=== PATIENT | male | born 1935 | race Caucasian/White ===

== ENCOUNTER 2016-05-29 17:17 | Inpatient (IN) | payer OTHER ==
[~2016-05-29] VITALS: Ht 177.8 cm; Wt 83.9 kg
[2016-05-29 17:26] VITALS: BP_SYST 147
[2016-05-29] MEDS ORDERED: NACL 0.9% 1,000 ML IV SCH (17:46)
[2016-05-29 18:56] LABS: ANION GAP 8 (5-15); CHLORIDE 94 mmol/L (98-107); CREATININE 1.15 mg/dL (0.55-1.30); GLUCOSE 184 mg/dL (70-99); POTASSIUM 3.2 mmol/L (3.5-5.1); SODIUM SERUM 131 mmol/L (136-145); UREA NITROGEN, BLOOD 13 mg/dL (8-21)
[2016-05-29 19:01] LABS: ALANINE AMINOTRANSFERASE 28 U/L (12-78); ALBUMIN 3.2 g/dL (3.4-4.8); ASPARTATE AMINOTRANSFERASE 23 U/L (10-37); TOTAL BILIRUBIN 1.1 mg/dL (0.0-1.0); TOTAL PROTEIN, SERUM 6.8 g/dL (6.4-8.3)
[2016-05-29] MEDS ORDERED: POTASSIUM CHLORIDE 20 MEQ TAB.PRT.SR PO ONE (19:15)
[2016-05-29 19:16] LABS: BASOPHILS % (AUTO) 0.4 % (0.0-2.0); RED CELL DISTRIBUTION WIDTH 12.1 % (9.0-15.0)
[2016-05-29 19:23] LABS: EOSINOPHILS # (AUTO) 0.3 K/uL (0.0-0.4); EOSINOPHILS % (AUTO) 3.8 % (0.0-4.0); HEMOGLOBIN 14.8 g/dL (14.0-18.0); LYMPHOCYTES # (AUTO) 1.5 K/uL (1.0-5.5); LYMPHOCYTES % (AUTO) 16.7 % (20.5-51.5); MEAN CORPUSCULAR HEMOGLOBIN 32 pg (27-31); MEAN CORPUSCULAR HGB CONC 34 % (32-36); MEAN CORPUSCULAR VOLUME 93 fL (79.0-98.0); MONOCYTES % (AUTO) 11.4 % (1.7-9.3); NEUTROPHILS # (AUTO) 5.9 K/uL (1.8-7.7); NEUTROPHILS % (AUTO) 67.7 % (40.0-70.0); RED BLOOD CELL COUNT(AUTO) 4.72 MIL/uL (4.2-6.2); WHITE BLOOD COUNT (AUTO) 8.7 K/uL (4.8-10.8)
[2016-05-29 19:24] LABS: PLATELET COUNT (AUTO) 198 K/uL (130-430)
[2016-05-29] MEDS ORDERED: ASPIRIN 81 MG TAB.CHEW PO ONE (19:30)
[2016-05-29 19:34] LABS: BILIRUBIN,URINE NEGATIVE (NEGATIVE); CLARITY/URINE HAZY (CLEAR); COLOR,URINE YELLOW (YELLOW); GLUCOSE,URINE NEGATIVE (NEGATIVE); KETONES,URINE TRACE (NEGATIVE); LEUKOCYTE ESTERASE ,URINE 3+ (NEGATIVE); NITRITE, URINE POSITIVE (NEGATIVE); PROTEIN URINE NEGATIVE (NEGATIVE)
[2016-05-29 19:45] LABS: BLOOD, URINE TRACE (NEGATIVE)
[2016-05-29 19:46] LABS: BACTERIA,URINE MODERATE /HPF (None Seen); MUCUS,URINE None Seen /LPF (None Seen); RBC,URINE NONE SEEN /HPF (0-3); WBC,URINE 50-80 /HPF (0-3)
[2016-05-29] MEDS ORDERED: cefTRIAXone 1 GM IVPB PREMIX 50 ML IV ONE (20:00)
[2016-05-29] MEDS ORDERED: MORPHINE 2 MG/ML INJ. SYRINGE IVP ONE (20:15)
[2016-05-29 20:25] LABS: INR 1.2 (0.80-1.20); PROTHROMBIN TIME 12.6 SECS (9.5-12.5)
[2016-05-29 20:30] VITALS: BP_SYST 129
[2016-05-29] MEDS ORDERED: amLODIPine BESYLATE 5 MG TABLET PO ONE (22:00)
[2016-05-29] MEDS ORDERED: ACETAMINOPHEN 325 MG TABLET PO PRN (22:00)
[2016-05-29] MEDS: traMADol HCL HCL 50 MG TABLET (ULTRAM) PO PRN (23:16)
[2016-05-30 01:20] VITALS: BP_SYST 129
[2016-05-30 03:46] VITALS: BP_SYST 126
[2016-05-30] MEDS: traMADol HCL HCL 50 MG TABLET (ULTRAM) PO PRN ×4 (05:14→21:17)
[2016-05-30 07:02] LABS: BASOPHILS % (AUTO) 0.4 % (0.0-2.0); EOSINOPHILS # (AUTO) 0.4 K/uL (0.0-0.4); EOSINOPHILS % (AUTO) 4.7 % (0.0-4.0); HEMATOCRIT 45.7 % (36-54); LYMPHOCYTES # (AUTO) 1.6 K/uL (1.0-5.5); LYMPHOCYTES % (AUTO) 19.8 % (20.5-51.5); MEAN CORPUSCULAR HEMOGLOBIN 31 pg (27-31); MEAN CORPUSCULAR HGB CONC 33 % (32-36); MEAN CORPUSCULAR VOLUME 94 fL (79.0-98.0); MONOCYTES # (AUTO) 0.8 K/uL (0.0-1.0); MONOCYTES % (AUTO) 10.6 % (1.7-9.3); NEUTROPHILS # (AUTO) 5.1 K/uL (1.8-7.7); NEUTROPHILS % (AUTO) 64.5 % (40.0-70.0); PLATELET COUNT (AUTO) 168 K/uL (130-430); RED BLOOD CELL COUNT(AUTO) 4.85 MIL/uL (4.2-6.2); RED CELL DISTRIBUTION WIDTH 12.5 % (9.0-15.0); WHITE BLOOD COUNT (AUTO) 7.9 K/uL (4.8-10.8)
[2016-05-30 07:11] LABS: ANION GAP 5 (5-15); CALCIUM 9.3 mg/dL (8.4-11.0); CHLORIDE 95 mmol/L (98-107); CREATININE 0.88 mg/dL (0.55-1.30); GLUCOSE 133 mg/dL (70-99); POTASSIUM 3.4 mmol/L (3.5-5.1); SODIUM SERUM 132 mmol/L (136-145); UREA NITROGEN, BLOOD 11 mg/dL (8-21)
[2016-05-30 08:04] VITALS: BP_SYST 119
[2016-05-30] MEDS: ASPIRIN 81 MG TAB.CHEW PO SCH (09:11)
[2016-05-30] MEDS: LOSARTAN POTASSIUM 50 MG TABLET (COZAAR) PO SCH (09:11)
[2016-05-30] MEDS: DABIGATRAN ETEXILATE MESYLATE 75 MG CAPSULE PO SCH ×2 (09:11→21:16)
[2016-05-30] MEDS: ATORVASTATIN 10 MG TABLET PO SCH (09:12)
[2016-05-30] MEDS ORDERED: PANTOPRAZOLE SODIUM 40 MG TAB PO ONE (10:15)
[2016-05-30] MEDS ORDERED: POTASSIUM CHLORIDE 20 MEQ TAB.PRT.SR PO ONE (11:00)
[2016-05-30 12:10] VITALS: BP_SYST 152
[2016-05-30 16:01] VITALS: BP_SYST 128
[2016-05-30 20:00] VITALS: BP_SYST 118
[2016-05-30] MEDS: cefTRIAXone 1 GM in D5W 50 ML IV SCH (21:00)
[2016-05-30] MEDS ORDERED: cefTRIAXone 1 GM IVPB PREMIX 50 ML IV ONE (21:50)
[2016-05-31] VITALS: BP_SYST 140
[2016-05-31 04:00] VITALS: BP_SYST 136
[2016-05-31 06:48] LABS: BASOPHILS % (AUTO) 0.5 % (0.0-2.0); EOSINOPHILS # (AUTO) 0.1 K/uL (0.0-0.4); EOSINOPHILS % (AUTO) 1.4 % (0.0-4.0); HEMATOCRIT 47.5 % (36-54); LYMPHOCYTES # (AUTO) 1.5 K/uL (1.0-5.5); LYMPHOCYTES % (AUTO) 16.2 % (20.5-51.5); MEAN CORPUSCULAR HEMOGLOBIN 30 pg (27-31); MEAN CORPUSCULAR HGB CONC 32 % (32-36); MEAN CORPUSCULAR VOLUME 96 fL (79.0-98.0); MONOCYTES # (AUTO) 0.9 K/uL (0.0-1.0); MONOCYTES % (AUTO) 10.1 % (1.7-9.3); NEUTROPHILS # (AUTO) 6.6 K/uL (1.8-7.7); NEUTROPHILS % (AUTO) 71.8 % (40.0-70.0); PLATELET COUNT (AUTO) 175 K/uL (130-430); RED BLOOD CELL COUNT(AUTO) 4.95 MIL/uL (4.2-6.2); RED CELL DISTRIBUTION WIDTH 12.1 % (9.0-15.0); WHITE BLOOD COUNT (AUTO) 9.1 K/uL (4.8-10.8)
[2016-05-31 07:17] LABS: ALANINE AMINOTRANSFERASE 30 U/L (12-78); ALBUMIN 3.4 g/dL (3.4-4.8); ANION GAP 7 (5-15); ASPARTATE AMINOTRANSFERASE 27 U/L (10-37); CALCIUM 9.5 mg/dL (8.4-11.0); CHLORIDE 92 mmol/L (98-107); CREATININE 0.84 mg/dL (0.55-1.30); GLUCOSE 118 mg/dL (70-99); POTASSIUM 3.6 mmol/L (3.5-5.1); SODIUM SERUM 130 mmol/L (136-145); TOTAL BILIRUBIN 1.6 mg/dL (0.0-1.0); TOTAL PROTEIN, SERUM 7.2 g/dL (6.4-8.3); UREA NITROGEN, BLOOD 11 mg/dL (8-21)
[2016-05-31 07:18] LABS: THYROID STIMULATING HORMONE 1.14 uIu/mL (0.34-4.82)
[2016-05-31 08:25] VITALS: BP_SYST 129
[2016-05-31] MEDS: DABIGATRAN ETEXILATE MESYLATE 75 MG CAPSULE PO SCH ×2 (09:22→21:33)
[2016-05-31] MEDS: ATORVASTATIN 10 MG TABLET PO SCH (09:22)
[2016-05-31] MEDS: PANTOPRAZOLE SODIUM 40 MG TAB PO SCH (09:22)
[2016-05-31] MEDS: ASPIRIN 81 MG TAB.CHEW PO SCH (09:22)
[2016-05-31] MEDS: LOSARTAN POTASSIUM 50 MG TABLET (COZAAR) PO SCH (09:22)
[2016-05-31] MEDS: traMADol HCL HCL 50 MG TABLET (ULTRAM) PO PRN ×2 (09:28→21:33)
[2016-05-31] MEDS ORDERED: MILK OF MAGNESIA 30 ML UDC PO ONE (09:45)
[2016-05-31 12:25] VITALS: BP_SYST 122
[2016-05-31 16:31] VITALS: BP_SYST 127
[2016-05-31 19:30] VITALS: BP_SYST 124
[2016-05-31] MEDS ORDERED: TEMAZEPAM 15 MG CAPSULE PO ONE (20:30)
[2016-05-31] MEDS: cefTRIAXone 1 GM in D5W 50 ML IV SCH (21:32)
[2016-05-31] MEDS: DOCUSATE SODIUM 100 MG CAPSULE PO SCH (21:33)
[2016-06-01] VITALS: BP_SYST 115
[2016-06-01 04:00] VITALS: BP_SYST 136
[2016-06-01 06:51] LABS: BASOPHILS # (AUTO) 0.1 K/uL (0.0-0.2); BASOPHILS % (AUTO) 0.6 % (0.0-2.0); EOSINOPHILS # (AUTO) 0.1 K/uL (0.0-0.4); EOSINOPHILS % (AUTO) 0.8 % (0.0-4.0); HEMATOCRIT 44.9 % (36-54); LYMPHOCYTES # (AUTO) 1.3 K/uL (1.0-5.5); LYMPHOCYTES % (AUTO) 14.3 % (20.5-51.5); MEAN CORPUSCULAR HEMOGLOBIN 31 pg (27-31); MEAN CORPUSCULAR HGB CONC 33 % (32-36); MEAN CORPUSCULAR VOLUME 94 fL (79.0-98.0); MONOCYTES % (AUTO) 10.8 % (1.7-9.3); NEUTROPHILS # (AUTO) 6.5 K/uL (1.8-7.7); NEUTROPHILS % (AUTO) 73.5 % (40.0-70.0); PLATELET COUNT (AUTO) 168 K/uL (130-430); RED BLOOD CELL COUNT(AUTO) 4.76 MIL/uL (4.2-6.2); RED CELL DISTRIBUTION WIDTH 12.1 % (9.0-15.0)
[2016-06-01 07:27] LABS: ANION GAP 7 (5-15); CALCIUM 9.3 mg/dL (8.4-11.0); CHLORIDE 92 mmol/L (98-107); CREATININE 0.79 mg/dL (0.55-1.30); GLUCOSE 123 mg/dL (70-99); POTASSIUM 3.4 mmol/L (3.5-5.1); SODIUM SERUM 130 mmol/L (136-145); UREA NITROGEN, BLOOD 10 mg/dL (8-21)
[2016-06-01] MEDS: ATORVASTATIN 10 MG TABLET PO SCH (09:35)
[2016-06-01] MEDS: DABIGATRAN ETEXILATE MESYLATE 75 MG CAPSULE PO SCH ×2 (09:35→20:48)
[2016-06-01] MEDS: PANTOPRAZOLE SODIUM 40 MG TAB PO SCH (09:35)
[2016-06-01] MEDS: LOSARTAN POTASSIUM 50 MG TABLET (COZAAR) PO SCH (09:36)
[2016-06-01] MEDS: DOCUSATE SODIUM 100 MG CAPSULE PO SCH ×2 (09:36→20:47)
[2016-06-01] MEDS: ASPIRIN 81 MG TAB.CHEW PO SCH (09:37)
[2016-06-01] MEDS ORDERED: POTASSIUM CHLORIDE 20 MEQ TAB.PRT.SR PO ONE (10:30)
[2016-06-01] MEDS ORDERED: GADOPENTETATE DIMEGLUMINE 15 ML VIAL IV ONE (10:51)
[2016-06-01 10:52] VITALS: BP_SYST 134
[2016-06-01] MEDS ORDERED: GADOPENTETATE DIMEGLUMINE 5 ML VIAL IV ONE (10:52)
[2016-06-01] MEDS: traMADol HCL HCL 50 MG TABLET (ULTRAM) PO PRN ×2 (10:55→17:05)
[2016-06-01 12:00] VITALS: BP_SYST 126
[2016-06-01] MEDS ORDERED: ALPRAZolam 0.25 MG TABLET PO ONE (12:15)
[2016-06-01 16:00] VITALS: BP_SYST 124
[2016-06-01 19:30] VITALS: BP_SYST 122
[2016-06-01] MEDS: cefTRIAXone 1 GM in D5W 50 ML IV SCH (20:48)
[2016-06-02 00:06] VITALS: BP_SYST 140
[2016-06-02 03:51] VITALS: BP_SYST 134
[2016-06-02 07:29] LABS: BASOPHILS # (AUTO) 0.1 K/uL (0.0-0.2); BASOPHILS % (AUTO) 1.1 % (0.0-2.0); EOSINOPHILS # (AUTO) 0.1 K/uL (0.0-0.4); EOSINOPHILS % (AUTO) 1.1 % (0.0-4.0); HEMOGLOBIN 15.6 g/dL (14.0-18.0); LYMPHOCYTES # (AUTO) 1.5 K/uL (1.0-5.5); LYMPHOCYTES % (AUTO) 14.6 % (20.5-51.5); MEAN CORPUSCULAR HEMOGLOBIN 31 pg (27-31); MEAN CORPUSCULAR HGB CONC 33 % (32-36); MEAN CORPUSCULAR VOLUME 94 fL (79.0-98.0); MONOCYTES # (AUTO) 1.2 K/uL (0.0-1.0); MONOCYTES % (AUTO) 12.1 % (1.7-9.3); NEUTROPHILS # (AUTO) 7.2 K/uL (1.8-7.7); NEUTROPHILS % (AUTO) 71.1 % (40.0-70.0); PLATELET COUNT (AUTO) 186 K/uL (130-430); RED BLOOD CELL COUNT(AUTO) 5.11 MIL/uL (4.2-6.2); RED CELL DISTRIBUTION WIDTH 12.1 % (9.0-15.0); WHITE BLOOD COUNT (AUTO) 10.1 K/uL (4.8-10.8)
[2016-06-02 07:30] LABS: CALCIUM 9.4 mg/dL (8.4-11.0); CREATINE KINASE, TOTAL 969 U/L (39-308); CREATININE 0.86 mg/dL (0.55-1.30); GLUCOSE 123 mg/dL (70-99); UREA NITROGEN, BLOOD 12 mg/dL (8-21)
[2016-06-02 08:05] LABS: CHLORIDE 94 mmol/L (98-107)
[2016-06-02 08:14] LABS: ANION GAP 4 (5-15); POTASSIUM 3.5 mmol/L (3.5-5.1); SODIUM SERUM 130 mmol/L (136-145)
[2016-06-02 08:25] VITALS: BP_SYST 143
[2016-06-02 08:49] LABS: CKMB RELATIVE INDEX 1.5 (0.0-2.9); CREATINE KINASE MB 14.3 ng/mL (0-3.6)
[2016-06-02] MEDS: PANTOPRAZOLE SODIUM 40 MG TAB PO SCH (08:49)
[2016-06-02] MEDS: ATORVASTATIN 10 MG TABLET PO SCH (08:49)
[2016-06-02] MEDS: DABIGATRAN ETEXILATE MESYLATE 75 MG CAPSULE PO SCH ×2 (08:49→21:24)
[2016-06-02] MEDS: traMADol HCL HCL 50 MG TABLET (ULTRAM) PO PRN (08:50)
[2016-06-02] MEDS: ASPIRIN 81 MG TAB.CHEW PO SCH (08:50)
[2016-06-02] MEDS: LOSARTAN POTASSIUM 50 MG TABLET (COZAAR) PO SCH (08:51)
[2016-06-02] MEDS: DOCUSATE SODIUM 100 MG CAPSULE PO SCH ×2 (08:51→21:23)
[2016-06-02] MEDS: DEXAMETHASONE 1 MG TABLET (DECADRON) PO SCH ×2 (09:00→13:17)
[2016-06-02] MEDS ORDERED: DEXAMETHASONE 1 MG TABLET (DECADRON) PO SCH (09:00)
[2016-06-02] MEDS ORDERED: DIATR MEGLU/DIATRIZ SOD 30 ML SOLUTION PO ONE (09:19)
[2016-06-02] MEDS ORDERED: ALPRAZolam 0.25 MG TABLET PO ONE (10:30)
[2016-06-02] MEDS ORDERED: GADOPENTETATE DIMEGLUMINE 15 ML VIAL IV ONE (11:29)
[2016-06-02 16:19] VITALS: BP_SYST 137
[2016-06-02 17:17] LABS: CREATININE 0.97 mg/dL (0.55-1.30)
[2016-06-02] MEDS: DECADRON 4 MG TABLET PO SCH ×2 (18:14→21:26)
[2016-06-02 19:56] VITALS: BP_SYST 135
[2016-06-02] MEDS ORDERED: IOHEXOL 100 ML IV ONE (20:02)
[2016-06-02] MEDS: cefTRIAXone 1 GM in D5W 50 ML IV SCH (21:27)
[2016-06-03 00:21] VITALS: BP_SYST 150
[2016-06-03 04:06] VITALS: BP_SYST 124
[2016-06-03 08:00] VITALS: BP_SYST 122
[2016-06-03] MEDS: ATORVASTATIN 10 MG TABLET PO SCH (09:49)
[2016-06-03] MEDS: PANTOPRAZOLE SODIUM 40 MG TAB PO SCH (09:49)
[2016-06-03] MEDS: DECADRON 4 MG TABLET PO SCH ×4 (09:50→20:26)
[2016-06-03] MEDS: ASPIRIN 81 MG TAB.CHEW PO SCH (09:50)
[2016-06-03] MEDS: DOCUSATE SODIUM 100 MG CAPSULE PO SCH ×2 (09:50→20:25)
[2016-06-03] MEDS: DABIGATRAN ETEXILATE MESYLATE 75 MG CAPSULE PO SCH ×2 (09:51→20:26)
[2016-06-03] MEDS: LOSARTAN POTASSIUM 50 MG TABLET (COZAAR) PO SCH (09:51)
[2016-06-03 10:13] LABS: % FREE PSA 24.3 % (.); FREE PSA 3.14 ng/mL
[2016-06-03 12:00] VITALS: BP_SYST 124
[2016-06-03 16:30] VITALS: BP_SYST 142
[2016-06-03 17:04] LABS: PROSTATE SPECIFIC AG TOTAL 12.9 ng/mL (0.0-4.0)
[2016-06-03 19:36] VITALS: BP_SYST 132
[2016-06-03] MEDS: cefTRIAXone 1 GM in D5W 50 ML IV SCH (20:31)
[2016-06-03] MEDS: traMADol HCL HCL 50 MG TABLET (ULTRAM) PO PRN (20:43)
[2016-06-04 00:42] VITALS: BP_SYST 150
[2016-06-04 04:00] VITALS: BP_SYST 139
[2016-06-04] MEDS: DOCUSATE SODIUM 100 MG CAPSULE PO SCH ×2 (08:55→20:23)
[2016-06-04] MEDS: ATORVASTATIN 10 MG TABLET PO SCH (08:55)
[2016-06-04] MEDS: DABIGATRAN ETEXILATE MESYLATE 75 MG CAPSULE PO SCH ×2 (08:55→20:23)
[2016-06-04] MEDS: PANTOPRAZOLE SODIUM 40 MG TAB PO SCH (08:55)
[2016-06-04] MEDS: LOSARTAN POTASSIUM 50 MG TABLET (COZAAR) PO SCH (08:55)
[2016-06-04] MEDS: DECADRON 4 MG TABLET PO SCH ×4 (08:55→20:23)
[2016-06-04] MEDS: ASPIRIN 81 MG TAB.CHEW PO SCH (08:55)
[2016-06-04 09:37] VITALS: BP_SYST 141
[2016-06-04 11:51] VITALS: BP_SYST 135
[2016-06-04 15:33] VITALS: BP_SYST 119
[2016-06-04] MEDS: cefTRIAXone 1 GM in D5W 50 ML IV SCH (20:23)
[2016-06-04] MEDS: traMADol HCL HCL 50 MG TABLET (ULTRAM) PO PRN (22:28)
[2016-06-04 23:24] VITALS: BP_SYST 138
[2016-06-05 04:16] VITALS: BP_SYST 127
[2016-06-05 08:00] VITALS: BP_SYST 151
[2016-06-05] MEDS: LOSARTAN POTASSIUM 50 MG TABLET (COZAAR) PO SCH (08:56)
[2016-06-05] MEDS: PANTOPRAZOLE SODIUM 40 MG TAB PO SCH (08:57)
[2016-06-05] MEDS: DOCUSATE SODIUM 100 MG CAPSULE PO SCH (08:57)
[2016-06-05] MEDS: DECADRON 4 MG TABLET PO SCH (08:57)
[2016-06-05] MEDS: DABIGATRAN ETEXILATE MESYLATE 75 MG CAPSULE PO SCH (08:57)
[2016-06-05] MEDS: ATORVASTATIN 10 MG TABLET PO SCH (08:57)
[2016-06-05] MEDS: ASPIRIN 81 MG TAB.CHEW PO SCH (08:57)
[2016-06-05 10:08] VITALS: BP_SYST 138
== END 2016-06-05 10:30 | disposition short-term general hospital (02) | DRG 543 ==
LOC: SED 17:17 → STU 20:15
PROVIDERS: ADMIT Internal Medicine; ATTEND Internal Medicine
DX: C79.51 Secondary malignant neoplasm of bone (principal); G99.2 Myelopathy in diseases classified elsewhere; N39.0 Urinary tract infection, site not specified; C49.9 Malignant neoplasm of connective and soft tissue, unspecified; G95.20 Unspecified cord compression; R27.0 Ataxia, unspecified; M54.9 Dorsalgia, unspecified; I10 Essential (primary) hypertension; E78.5 Hyperlipidemia, unspecified; I48.2 Chronic atrial fibrillation; E11.65 Type 2 diabetes mellitus with hyperglycemia; E87.6 Hypokalemia; G89.29 Other chronic pain; R91.8 Other nonspecific abnormal finding of lung field; K59.00 Constipation, unspecified; B96.20 Unspecified Escherichia coli [E. coli] as the cause of diseases classified elsewhere; E11.42 Type 2 diabetes mellitus with diabetic polyneuropathy; M19.90 Unspecified osteoarthritis, unspecified site; M72.0 Palmar fascial fibromatosis [Dupuytren]; Z85.72 Personal history of non-Hodgkin lymphomas; Z87.891 Personal history of nicotine dependence; Z85.820 Personal history of malignant melanoma of skin; Z92.21 Personal history of antineoplastic chemotherapy; Z85.46 Personal history of malignant neoplasm of prostate; Z79.899 Other long term (current) drug therapy; Z90.49 Acquired absence of other specified parts of digestive tract
CPT/HCPCS: 36415; 70551; 71010; 71260-TC; 72156; 72157; 80048; 80053; 81000-TC; 82550-TC; 82553-TC; 82565-TC; 82607; 83605; 83735-TC; 83880; 84153; 84443-TC; 84484; 84520-TC; 85025; 85610-TC; 85730-TC; 87040-TC; 87086; 87186-TC; 93005; 93306; 96361; 96365; 96375; 97110-GP; 97116-GP; 97530-GP; 99285; A9579; J0696; J2270; J7030; J7050; J7060; J8540; Q9964; Q9967

== ENCOUNTER 2016-07-07 23:37 | Inpatient (IN) | payer OTHER ==
[~2016-07-07] VITALS: Ht 177.8 cm; Wt 79.4 kg
[2016-07-07 23:37] VITALS: BP_SYST 131
--- NOTE | 2016-07-07 23:37 | NUR ---
Patient to ER bed 4 to gown for evaluation. Side rails up. Report given to ALMA ROSA RN.
--- NOTE | 2016-07-07 23:50 | NUR ---
Pt from [facility], BIB ACLS, c/o chest pain and back pain 11/29. Pt denies any other distress. MD aware. Safety maintained. Continue to monitor.
[2016-07-08] VITALS (9 sets, daily range): BP systolic 106–148
--- NOTE | 2016-07-08 00:31 | NUR ---
JOAQUIN Benavides at bedside examining patient.
--- NOTE | 2016-07-08 00:35 | NUR ---
Note tri in EDM - 07/08/16 at 0513 by SDNURMTN Pt came from home,a&ox 4, c/o chest pain and neck pain 08/29. Pt denies SOB or any acute distress. aware. Safety maintained. Continue to monitor.
[2016-07-08] MEDS ORDERED: ACET-2165 PO (00:54)
[2016-07-08] MEDS ORDERED: ASPI-1063 PO (00:55)
[2016-07-08] MEDS ORDERED: LIP80 PO (00:56)
[2016-07-08] MEDS ORDERED: DULR10 RC (00:56)
[2016-07-08] MEDS ORDERED: DOCU250C PO (00:57)
[2016-07-08] MEDS ORDERED: LOVI40 SQ (00:58)
[2016-07-08] MEDS ORDERED: FOLI-43 PO (00:59)
[2016-07-08] MEDS ORDERED: IPRA3AMP9 INH (00:59)
[2016-07-08] MEDS ORDERED: LIDP TP (01:00)
[2016-07-08] MEDS ORDERED: PREG75CA PO (01:00)
[2016-07-08] MEDS ORDERED: HYDR-4100 PO (01:03)
[2016-07-08] MEDS ORDERED: PRO40 PO (01:05)
[2016-07-08] MEDS ORDERED: TRAM50TA92 PO (01:06)
[2016-07-08] MEDS ORDERED: TAMS-11 PO (01:06)
[2016-07-08] MEDS ORDERED: ALPR0.2583 PO (01:07)
[2016-07-08 01:39] LABS: BASOPHILS # (AUTO) 0.2 K/uL (0.0-0.2); BASOPHILS % (AUTO) 2.6 % (0.0-2.0); EOSINOPHILS # (AUTO) 0.1 K/uL (0.0-0.4); EOSINOPHILS % (AUTO) 0.7 % (0.0-4.0); HEMATOCRIT 39.1 % (36-54); LYMPHOCYTES # (AUTO) 1.5 K/uL (1.0-5.5); LYMPHOCYTES % (AUTO) 17.1 % (20.5-51.5); MEAN CORPUSCULAR HEMOGLOBIN 32 pg (27-31); MEAN CORPUSCULAR HGB CONC 33 % (32-36); MEAN CORPUSCULAR VOLUME 96 fL (79.0-98.0); MONOCYTES # (AUTO) 1.2 K/uL (0.0-1.0); MONOCYTES % (AUTO) 13.8 % (1.7-9.3); NEUTROPHILS # (AUTO) 5.7 K/uL (1.8-7.7); NEUTROPHILS % (AUTO) 65.8 % (40.0-70.0); PLATELET COUNT (AUTO) 267 K/uL (130-430); RED BLOOD CELL COUNT(AUTO) 4.08 MIL/uL (4.2-6.2); RED CELL DISTRIBUTION WIDTH 13.4 % (9.0-15.0); WHITE BLOOD COUNT (AUTO) 8.7 K/uL (4.8-10.8)
[2016-07-08 01:40] LABS: BILIRUBIN,URINE NEGATIVE (NEGATIVE); BLOOD, URINE 2+ (NEGATIVE); CLARITY/URINE CLOUDY (CLEAR); COLOR,URINE YELLOW (YELLOW); GLUCOSE,URINE NEGATIVE (NEGATIVE); KETONES,URINE NEGATIVE (NEGATIVE); LEUKOCYTE ESTERASE ,URINE 3+ (NEGATIVE); NITRITE, URINE POSITIVE (NEGATIVE); PROTEIN URINE TRACE (NEGATIVE)
[2016-07-08] MEDS ORDERED: MORPHINE 2 MG/ML INJ. SYRINGE ONE (01:40)
[2016-07-08 01:45] LABS: ANION GAP 3 (5-15); CALCIUM 8.6 mg/dL (8.4-11.0); CHLORIDE 101 mmol/L (98-107); CREATININE 0.82 mg/dL (0.55-1.30); GLUCOSE 112 mg/dL (70-99); POTASSIUM 3.8 mmol/L (3.5-5.1); SODIUM SERUM 136 mmol/L (136-145); UREA NITROGEN, BLOOD 12 mg/dL (8-21)
[2016-07-08] MEDS ORDERED: MORPHINE 2 MG/ML INJ. SYRINGE IVP ONE (01:45)
[2016-07-08 01:50] LABS: BACTERIA,URINE MODERATE /HPF (None Seen); MUCUS,URINE 1+ /LPF (None Seen); WBC,URINE >100 /HPF (0-3)
[2016-07-08 01:50] LABS: ALANINE AMINOTRANSFERASE 52 U/L (12-78); ALBUMIN 2.6 g/dL (3.4-4.8); ASPARTATE AMINOTRANSFERASE 29 U/L (10-37); TOTAL BILIRUBIN 0.7 mg/dL (0.0-1.0); TOTAL PROTEIN, SERUM 5.8 g/dL (6.4-8.3)
[2016-07-08] MEDS ORDERED: cefTRIAXone 1 GM in D5W 50 ML IV ONE (02:00)
[2016-07-08] MEDS ORDERED: ASPIRIN 81 MG TAB.CHEW PO ONE (02:15)
[2016-07-08] MEDS ORDERED: NITROGLYCERIN 0.4 MG TAB.SUBL SL ONE ×3 (02:15→02:45)
[2016-07-08] MEDS ORDERED: NS 500 ML IV ONE (02:15)
[2016-07-08] MEDS ORDERED: cefTRIAXone 1 GM VIAL ONE (02:21)
[2016-07-08] MEDS ORDERED: ASPIRIN 81 MG TAB.CHEW ONE (02:27)
[2016-07-08] MEDS ORDERED: MORPHINE 2 MG/ML INJ. SYRINGE IVP PRN ×2 (02:30→11:45)
[2016-07-08] MEDS ORDERED: ONDANSETRON HCL 4 MG/2 ML VIAL IVP PRN (02:30)
[2016-07-08] MEDS ORDERED: IPRATROPIUM/ALBUTEROL SULFATE 3 ML AMPUL.NEB INH PRN (02:30)
--- NOTE | 2016-07-08 02:55 | NUR ---
Patient will be admitted to Neal RN. Admitted to TELEMETRY unit. Will go to room 135. Belongings list completed. Summary report printed. Report will be given at bedside.
--- NOTE | 2016-07-08 03:13 | NUR ---
ADMISSION NOTE Received patient from ER via gurney, received report from RN. Patient admitted with diagnosis of UTI, altered mental status, elevated troponin. Patient oriented to hospital routine, call light, toileting and safety-patient verbalized understanding.
--- NOTE | 2016-07-08 03:30 | NUR ---
initial nursing notes: Patient awake in bed. Patient oriented to name and place with periods of forgetfulness. Reoriented patient as needed. Patient has IV access on the right forearm. Patient denies of having pain.
--- NOTE | 2016-07-08 05:30 | NUR ---
nursing rounds: Patient calmly resting in bed. Call light within patient's reach.
--- NOTE | 2016-07-08 06:12 | NUR ---
nursing rounds: Patient's blood sugar result is 113. Patient had no hypoglycemic episode.
--- NOTE | 2016-07-08 07:43 | NUR ---
closing nursing notes: Patient is awake, alert and oriented X 4. Patient is in no acute respiratory distress. 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 Provided nursing report to incoming morning shift nurse, ANA ROSA Schrader, at patient's bedside.
--- NOTE | 2016-07-08 08:00 | NUR ---
OPENING NOTE PATIENT SITTING UP IN BED, VS STABLE ON ROOM AIR. PT IS COMPLAINING OF UPPER BACK PAIN 6/10 RELATED TO RECENT BACK SURGERY (APPROXIMATELY ONE MONTH AGO)
[2016-07-08] MEDS ORDERED: ALPRAZolam 0.25 MG TABLET PO PRN (08:15)
[2016-07-08] MEDS ORDERED: BISACODYL 10 MG/SUPPOSITORY RC PRN (08:15)
--- NOTE | 2016-07-08 09:10 | NUR ---
Nutrition Update Lawrence Scale 14 noted. Pt admitted for altered mental status, UTI. Diet: CCHO & cardiac (2 active, separate diet orders) BMI: 25.1 kg/m2 RD to follow per nutrition care standards.
[2016-07-08] MEDS: ASPIRIN 81 MG TABLET(ECOTRIN) PO SCH (09:18)
[2016-07-08] MEDS: PANTOPRAZOLE SODIUM 40 MG/VIAL (PROTONIX) IVP SCH (09:18)
[2016-07-08] MEDS: FOLIC ACID 1 MG TABLET PO SCH (09:18)
[2016-07-08] MEDS: PREGABALIN 75 MG CAPSULE (LYRICA) PO SCH ×2 (09:19→21:17)
--- NOTE | 2016-07-08 10:00 | NUR ---
ROUNDS PT RESTING IN BED AND SAID HE IS COMFORTABLE. BACK PAIN MANAGED BY EARLIER PRN ANALGESIC
[2016-07-08] MEDS ORDERED: MORPHINE 4 MG/ML INJ. SYRINGE IVP PRN (11:45)
--- NOTE | 2016-07-08 12:35 | NUR ---
ROUNDS PT SITTING UP IN BED EATING LUNCH, IS COMFORTABLE, AND SEVERAL FAMILY MEMBERS ARE AT BEDSIDE. EXPLAINED TO PT THAT DR. HAIRSTON HAS BEEN ADDED HIS CARDIOLOGY CONSULT. EDUCATED FAMILY ON PT'S DIET, THEY HAVE BEEN GIVING HIM COOKIES FROM OFF-SITE.
--- NOTE | 2016-07-08 14:05 | NUR ---
ROUNDS PT IS DISORIENTED AND THINKS HE IS AT HOME. I EDUCATED PT ABOUT WHERE HE IS AND WHY HE IS HERE, AND HE BECAME REORIENTED AFTER A FEW MINUTES. I REPOSITIONED HIM, LOWERED THE HEAD OF THE BED 30 DEGREES, AND CLOSED THE WINDOW SHADES BECAUSE HE WANTS TO TRY TO TAKE A NAP
--- NOTE | 2016-07-08 14:53 | NUR ---
MED ORDER CORRECTION I ADDED DR HIGGINS'S MORPHINE CLARIFICATION FOR ANOTHER PT ON THE FILE BY MISTAKE. NO MEDS WERE ADMINISTERED INCORRECTLY. I HAVE CORRECTED THE MATTER BY STOPPING THE TWO MIS-ENTRIES ON THIS FILE AND THEN RE-ADDING DR. ARNDT'S ORIGINAL ORDER OR MORPHINE 2MG Q4 PRN, IT WAS OVERWRITEN BY MY ENTRY.
--- NOTE | 2016-07-08 15:52 | NUR ---
Dr Finney / yenny due to run of Vtach 24 seconds.
--- NOTE | 2016-07-08 16:01 | NUR ---
PT V-TACH PT HAD A S4-SECOND RUN OF V-TACH. PT VS STABLE (98.2 DEGREES, 114/59, 81HR, 26 RR, 96% ON ROOM AIR). DR. MISAEL GANN.
--- NOTE | 2016-07-08 16:45 | NUR ---
CALL RECEIVED FROM DR. DOUGLAS APPRISED DR OF EPISODE OF V-TACH AND CURRENT VITALS (STABLE. DR. DOUGLAS STATED PT IS DNR AND THERE ISN'T MUCH ELSE WE CAN DO FOR THE PATIENT AT THIS TIME, SO THERE ARE NO NEW CARDIAC MEDICATION OR TESTS ORDERED. WAS CONCERNED THE INCREASED RESPIRATION MAY BE DUE TO ANXIETY, SO HE ORDERED ANTIANXIETY MEDS AT THIS POINT, THE PATIENT IS A LITTLE RESTLESS BUT STATES HE IS NOT SOB, DIZZY, OR IN PAIN. I WILL CONTINUE TO MONITOR THE PATIENT FOR S/S OF DISTRESS.
--- NOTE | 2016-07-08 18:00 | NUR ---
ROUNDS PT SLEEPING AND APPEARS COMFORTABLE
--- NOTE | 2016-07-08 18:55 | NUR ---
CLOSING NOTE PT IS SITTING IN BED AND APPEARS A LITTLE LESS CONFUSED THAN EARLY. HOWEVER,PT APPARENTLY REMOVED HIS IV, NO SIGN OF EXCESS BLEEDING OR TRAUMA.REPORTED TO PM NURSE THAT PT IS AN EXTREME FALL RISK AND SHOULD BE MOVED CLOSER TO NURSING STATION
--- NOTE | 2016-07-08 19:40 | NUR ---
INITIAL NOTES: PT AWAKE , CONFUSED . MOVED TO 132 A BED FOR FALL PRECAUTION CLOSE MONITORING. NO IV ACCESS AT THIS TIME , PT PULLED OUT IT EARLIER PER REPORT .ASSESSMENT DONE; BED IN LOW AND LOCK POSITION ; CALL BRYANT IN REACH ; INSTRUCTED PT TO CALL FOR ANY ASSISTANCE ; PATIENT VERBALIZED UNDERSTANDING AT THIS TIME, NO OTHER NEEDS AT THIS TIME, FALL AND SAFETY PRECAUTIONS IN PLACE .WILL CONITUE TO MONITOR;
--- NOTE | 2016-07-08 20:00 | NUR ---
IV INSERTION: NEW IV STARTED BY TO THE L FA . 20 G. IV IS WRAPPED WITH GAUZE BANDAGE
--- NOTE | 2016-07-08 20:30 | NUR ---
SPONGE BATH/ PIERSON CARE : SPONGE BATH AND PIERSON CARE GIVEN TO THE PT. PT IS COMFORTABLE ; PT TURNED AND REPOSITIONED ; WILL CONTINUE TO MONITOR.
--- NOTE | 2016-07-08 20:49 | NUR ---
PAGED PAGED DOCTOR BIANKA FOR ORDERS SPOKE WITH HORACIO
[2016-07-08] MEDS: cefTRIAXone 1 GM IVPB PREMIX 50 ML IV SCH (21:17)
[2016-07-08] MEDS: TAMSULOSIN HCL 0.4 MG CAP PO SCH (21:17)
--- NOTE | 2016-07-08 21:18 | NUR ---
PAGED SECOND PAGED FOR YRIS
[2016-07-08] MEDS: ATORVASTATIN 20 MG TABLET PO SCH (21:19)
--- NOTE | 2016-07-08 21:21 | NUR ---
CALLED BACK: TALKED WITH DR ARNDT , INFORMED MD THAT PT IS ON LIPITOR 80 MG . MD STATED DOSAGE IS OK . ALSO NOTIFIED MD THAT THERE IS AN ORDER FOR NOVOLOG COVERAGE BUT NO ORDER FOR ACCUCHECK AND PT IS ON DIET CONTROL FOR DM PER REPORT , ORDERED ACCUCHECK ACHS AND COVER WITH SSNOVOLOG PER ORDER .
--- NOTE | 2016-07-08 22:15 | NUR ---
XANAX: PT IS ANXIOUS, REMOVING BLANKETS AND SHEETS , TRYING TO REMOVE IV, HR WENT UP TO 130 . XANAX GIVEN PER ORDER. WILL CONTINUE TO MONITOR.
--- NOTE | 2016-07-08 23:15 | NUR ---
RN NOTES: PT IS COMFORTABLE ; NOT IN ANY ACUTE DISTRESS; HR IS ON THE 90SAT THIS TIME; WILL CONTINUE TO MONITOR.
[2016-07-09 00:14] VITALS: BP_SYST 123
--- NOTE | 2016-07-09 01:14 | NUR ---
RN ROUNDS: PT IS SLEEPING, NOT IN ANY ACUTE DISTRESS; RESPIRATION IS EVEN AND UNLABORED .WILL CONTINUE TO MONITOR.
[2016-07-09 04:00] VITALS: BP_SYST 102
--- NOTE | 2016-07-09 04:49 | NUR ---
PAGED PAGED DOCTOR ARNDT FOR ORDERS.
--- NOTE | 2016-07-09 04:52 | NUR ---
MD CALLED BACK : DR STEVENS CALLED BACK ,INFORMED MD THAT PT HAD SVT LASTED FOR 12 SEC , HR WENT UP TO 151, INFORMED MD THAT VITALS 105/65, HR 61 AND SAT 95% AT THIS TIME . PT RECEIVED XANAX LAST NIGHT AND VERY HARD TO WAKE UP . MD ORDERED TO INFORM INFORM THE MD WHO COMES FOR AM ROUNDS .
--- NOTE | 2016-07-09 05:30 | NUR ---
RN NOTES: PT AWAKE WITH STIMULUS , ABLE TO TALK , NOT IN ANY ACUTE DISTRESS; WENT BACK TO SLEEP. WILL CONITNUE TO MONITOR.
--- NOTE | 2016-07-09 07:20 | NUR ---
CLOSING NOTES: REPORT GIVEN TO RN AT BEDSIDE, INFORMED ABOUT THE SVT- 29 BEATS , LAST FOR 12SEC AND ALSO INFORMED RN PT WAS IN DEEP SLEEP AFTER XANAX , AND CHECK WITH MD IS IT OK TO GIVE THAT DOSE XANAX OR TO DC .
[2016-07-09 08:01] VITALS: BP_SYST 99
--- NOTE | 2016-07-09 08:03 | NUR ---
OPENING NOTE RECEIVED REPORT AT BEDSIDE. PT IS SOMNOLENT YES AROUSES TO HIS NAME AND A LIGHT TOUCH. A&O X 1, VITALS ARE STABLE ON 2mL O2: HIS BP IS A LITTLE LOW (99/53) BUT THAT IS WITHIN NORMAL RANGE FOR THIS PATIENT, NO REPORT OF PAIN. PT IS A SEVERE FALL RISK: BED IS IN LOWEST POSITION, BED ALARM IS ACTIVATED, AND PT IS CLOSEST TO NURSING STATION WITH THE DOOR OPEN FOR OBSERVATION. THE CALL LIGHT IS WITHIN REACH, BUT I AM NOT CONFIDENT HE UNDERSTAND HOW TO USE IT. I WILL CONTINUE TO MONITOR BP
[2016-07-09] MEDS: ASPIRIN 81 MG TABLET(ECOTRIN) PO SCH (09:25)
[2016-07-09] MEDS: PREGABALIN 75 MG CAPSULE (LYRICA) PO SCH (09:25)
[2016-07-09] MEDS: FOLIC ACID 1 MG TABLET PO SCH (09:25)
[2016-07-09] MEDS: PANTOPRAZOLE SODIUM 40 MG/VIAL (PROTONIX) IVP SCH (09:26)
[2016-07-09] MEDS ORDERED: ALPRAZolam 0.25 MG TABLET PO PRN (09:45)
--- NOTE | 2016-07-09 09:53 | NUR ---
CONSULT: DR AGUIRRE Consult was called, sw Christie re 22 second v-tach episode
--- NOTE | 2016-07-09 10:00 | NUR ---
ROUNDS PT SITTING UP IN BED, TALKING WITH HIS DAUGHTER (HAYDE), WHO IS AT BEDSIDE. PT IS COMFORTABLE AND WITHOUT PAIN. REPOSITIONED FOR COMFORT
--- NOTE | 2016-07-09 10:00 | NUR ---
PHYSICAL THERAPY CO-SIGN The Physical Therapy Progress Notes documented by Nursing Home Assistant have been reviewed. Reviewed/Co-Signed by: Светлана Sierra, PT Documentation Done by: Kamlesh Carpenter PTA I concur with the documentation of this CAREER TECHNICAL COUNSELOR. Plan: continue PT as per plan of care. Addendum: 07/09/16 at 1022 by Светлана Sierra PT Amended: Links added.
[2016-07-09 10:18] LABS: BASOPHILS % (AUTO) 0.5 % (0.0-2.0); EOSINOPHILS % (AUTO) 0.2 % (0.0-4.0); HEMATOCRIT 35.6 % (36-54); LYMPHOCYTES # (AUTO) 1.2 K/uL (1.0-5.5); LYMPHOCYTES % (AUTO) 13.9 % (20.5-51.5); MEAN CORPUSCULAR HEMOGLOBIN 32 pg (27-31); MEAN CORPUSCULAR HGB CONC 34 % (32-36); MONOCYTES % (AUTO) 11.8 % (1.7-9.3); NEUTROPHILS # (AUTO) 6.2 K/uL (1.8-7.7); NEUTROPHILS % (AUTO) 73.6 % (40.0-70.0); PLATELET COUNT (AUTO) 251 K/uL (130-430); RED CELL DISTRIBUTION WIDTH 13.6 % (9.0-15.0); WHITE BLOOD COUNT (AUTO) 8.4 K/uL (4.8-10.8)
[2016-07-09 10:34] LABS: MEAN CORPUSCULAR VOLUME 94 fL (79.0-98.0)
[2016-07-09 10:44] LABS: ANION GAP 5 (5-15); CALCIUM 8.6 mg/dL (8.4-11.0); CHLORIDE 100 mmol/L (98-107); CREATININE 0.87 mg/dL (0.55-1.30); GLUCOSE 140 mg/dL (70-99); POTASSIUM 3.5 mmol/L (3.5-5.1); SODIUM SERUM 135 mmol/L (136-145); TOTAL BILIRUBIN 0.9 mg/dL (0.0-1.0); UREA NITROGEN, BLOOD 8 mg/dL (8-21)
[2016-07-09 10:45] LABS: ALANINE AMINOTRANSFERASE 43 U/L (12-78); ALBUMIN 2.4 g/dL (3.4-4.8); ASPARTATE AMINOTRANSFERASE 25 U/L (10-37); PHOSPHORUS 4.2 mg/dL (2.7-4.5); TOTAL PROTEIN, SERUM 5.3 g/dL (6.4-8.3)
--- NOTE | 2016-07-09 10:52 | NUR ---
DR. AGUIRRE AT BEDSIDE
[2016-07-09] MEDS ORDERED: D5/0.45 NS 500 ML IV ONE (11:15)
--- NOTE | 2016-07-09 11:20 | NUR ---
CONSULT: DR MCGRATH Consult was called, [place] El , she will page DR Marcelina clay
[2016-07-09 12:00] VITALS: BP_SYST 111
--- NOTE | 2016-07-09 13:27 | NUR ---
DR MCGRATH AT BEDSIDE
--- NOTE | 2016-07-09 13:39 | NUR ---
V-TACH EPISODE PT WAS V-TACH FOR 6 SECONDS. PT ASYMPTOMATIC, VS STABLE WITH A HR OF 79 AND A BP OF 103/46, NO COMPLAINT OF PAIN OR DISCOMFORT. DR AGUIRRE NOTIFIED AND HE ADDED A 1-TIME DOSE OF LOPRESSOR, THE FIRST SCHEDULED DOSE ISN'T UNTIL 1900.
--- NOTE | 2016-07-09 14:00 | NUR ---
ROUNDS PT IS SITTING UP IN BED, TALKING TO HIS DAUGHTER WHO IS AT BEDSIDE. PT IS MORE ORIENTED THAN HE WAS THIS MORNING AND STATES HE IS COMFORTABLE.
[2016-07-09] MEDS ORDERED: METOPROLOL TARTRATE 25 MG TABLET PO ONE (14:15)
--- NOTE | 2016-07-09 16:19 | NUR ---
ROUNDS PT IS RESTING IN BED, HIS DAUGHTER IS STILL AT BEDSIDE. PT HAS A LIGHT, PRODUCTIVE COUGH, AND THE SPUTUM IS CLEAR AND FROTHY. LUNG SOUNDS ARE CLEAR, RR IS 19, VITALS STABLE. I WILL FOLLOW-UP WITH HIS DOCTOR.
[2016-07-09 16:26] VITALS: BP_SYST 119
[2016-07-09] MEDS: INSULIN ASPART 100 UNITS/ML, 10 ML VIAL (NovoLOG) SUBCUT PRN ×2 (16:49→20:58)
--- NOTE | 2016-07-09 18:00 | NUR ---
ROUNDS PT IS RESTING IN BED, HIS DAUGHTER IS NO LONGER AT BEDSIDE. PT IS COMFORTABLE, BUT HIS COUGH HAS PERSISTED THROUGH THE AFTERNOON. I CALLED DR. WILLIAM AND HE ORDERED A BREATHING TREATMENT AND MUCINEX.
[2016-07-09] MEDS ORDERED: IPRATROPIUM/ALBUTEROL SULFATE 3 ML AMPUL.NEB INH ONE (18:45)
[2016-07-09] MEDS ORDERED: guaiFENesin ER 600 MG TAB PO ONE (18:45)
--- NOTE | 2016-07-09 18:50 | NUR ---
CLOSING NOTE PT STATES HE IS COMFORTABLE AND WITHOUT PAIN. VS STABLE AND PATIENT'S LUNG SOUNDS ARE CLEAR EVEN THOUGH HE STILL HAS A LIGHTLY PRODUCTIVE COUGH. WILL ENDORSE BREATHING TREATMENT TO PM NURSE
[2016-07-09 19:20] VITALS: BP_SYST 126
--- NOTE | 2016-07-09 19:20 | NUR ---
INITIAL NOTE Patient resting on the be. No acute distress. No acute distress. Respiration even and unlabored. On O2 2L/min via NC. Non productive cough noted. Denied of any pain at this time. Skin warm and dry to touch. SL intact to LFA, no redness, no swelling. F/C intact, drain gravity with yellow urine. Discussed the safety issue, use call light when need help, and plan of care, verbally understanding. Safety measure maintained. Call light within reached. Bed in low position, side rails up, bed alarm on. Will continue to monitor.
[2016-07-09] MEDS: ATORVASTATIN 20 MG TABLET PO SCH (20:55)
[2016-07-09] MEDS: ENOXAPARIN SODIUM 40 MG/0.4 ML SYRINGE SUBCUT SCH (20:55)
[2016-07-09] MEDS: TAMSULOSIN HCL 0.4 MG CAP PO SCH (20:55)
[2016-07-09] MEDS: METOPROLOL TARTRATE 25 MG TABLET PO SCH (20:56)
--- NOTE | 2016-07-09 21:05 | NUR ---
ROUND Patient resting on the bed. No acute distress. Respiration even and unlabored. Continue ton O2 2L/min via NC. Safety measure maintained. Call light within reached. Bed in low position, side rails up, bed alarm on. Will continue to monitor.
[2016-07-09] MEDS ORDERED: guaiFENesin ER 600 MG TAB PO SCH (21:15)
[2016-07-09] MEDS: cefTRIAXone 1 GM IVPB PREMIX 50 ML IV SCH (22:27)
[2016-07-09] MEDS ORDERED: guaiFENesin ER 600 MG TAB ONE (22:31)
--- NOTE | 2016-07-09 23:11 | NUR ---
ROUND Patient resting on the bed. No acute distress. Respiration even and unlabored. Continue on O2 2L/min via NC. Safety measure maintained. Call light within reached. Bed in low position, side rails up, bed alarm on. Will continue to monitor.
[2016-07-10] MEDS: MORPHINE 2 MG/ML INJ. SYRINGE IVP PRN ×4 (00:02→21:21)
--- NOTE | 2016-07-10 00:07 | NUR ---
MORPHINE GIVEN Patient c/o back pain 08/29, Morphine 2mg IVP given as ordered. No acute distress. Repositioned to right side. Safety measure maintained. Call light within reached. Continue to monitor.
[2016-07-10 00:36] VITALS: BP_SYST 122
--- NOTE | 2016-07-10 01:55 | NUR ---
ROUND Patient sleeping comfortable. No acute distress. Respiration even and unlabored. Continue ton O2 2L/min via NC. Safety measure maintained. Call light within reached. Bed in low position, side rails up, bed alarm on. Will continue to monitor.
--- NOTE | 2016-07-10 04:05 | NUR ---
ROUND Patient sleeping comfortable. Respiration even and unlabored. No acute distress. Continue on O2 2L/min via NC. Safety measure maintained. Bed in low position, side rails up, bed alarm on. Call light within reached. Will continue to monitor.
--- NOTE | 2016-07-10 05:10 | NUR ---
ROUND Patient sleeping comfortable. Respiration even and unlabored. No acute distress. Continue on O2 2L/min via NC. Safety measure maintained. Bed in low position, side rails up, bed alarm on. Call light within reached. Continue to monitor.
[2016-07-10 05:31] VITALS: BP_SYST 124
[2016-07-10 06:43] LABS: BASOPHILS % (AUTO) 0.6 % (0.0-2.0); EOSINOPHILS % (AUTO) 0.5 % (0.0-4.0); HEMATOCRIT 35.7 % (36-54); HEMOGLOBIN 11.7 g/dL (14.0-18.0); LYMPHOCYTES # (AUTO) 1.2 K/uL (1.0-5.5); LYMPHOCYTES % (AUTO) 15.6 % (20.5-51.5); MEAN CORPUSCULAR HEMOGLOBIN 31 pg (27-31); MEAN CORPUSCULAR HGB CONC 33 % (32-36); MEAN CORPUSCULAR VOLUME 95 fL (79.0-98.0); MONOCYTES # (AUTO) 1.1 K/uL (0.0-1.0); MONOCYTES % (AUTO) 14.4 % (1.7-9.3); NEUTROPHILS # (AUTO) 5.6 K/uL (1.8-7.7); NEUTROPHILS % (AUTO) 68.9 % (40.0-70.0); PLATELET COUNT (AUTO) 211 K/uL (130-430); RED BLOOD CELL COUNT(AUTO) 3.77 MIL/uL (4.2-6.2); RED CELL DISTRIBUTION WIDTH 13.6 % (9.0-15.0); WHITE BLOOD COUNT (AUTO) 7.9 K/uL (4.8-10.8)
[2016-07-10 06:55] LABS: ALANINE AMINOTRANSFERASE 33 U/L (12-78); ALBUMIN 2.4 g/dL (3.4-4.8); ANION GAP 2 (5-15); ASPARTATE AMINOTRANSFERASE 32 U/L (10-37); CALCIUM 8.6 mg/dL (8.4-11.0); CHLORIDE 103 mmol/L (98-107); CREATININE 0.87 mg/dL (0.55-1.30); GLUCOSE 107 mg/dL (70-99); POTASSIUM 3.5 mmol/L (3.5-5.1); SODIUM SERUM 137 mmol/L (136-145); TOTAL PROTEIN, SERUM 5.3 g/dL (6.4-8.3); UREA NITROGEN, BLOOD 13 mg/dL (8-21)
--- NOTE | 2016-07-10 06:56 | NUR ---
CLOSING NOTE Patient resting on the bed. No acute distress. Respiration even and unlabored. On O2 2L/min via NC. Skin warm and dry to touch. SL intact to LFA, no redness, no swelling. F/C intact, drain gravity with yellow urine. All needs met. Hourly rounding during shift. Safety measure maintained. Call light within reached. Bed in low position, side rails up, bed alarm on. Will endorse to morning shift nurse.
[2016-07-10 08:00] VITALS: BP_SYST 123
--- NOTE | 2016-07-10 08:00 | NUR ---
A/OX4. On O2 2L/min via NC. IV intact at LFA, #20 , no rednes nor swelling noted. F/C intact, drain gravity with yellow urine. All needs met. Call light in place, Bed locked at lowest position, side rails up x3. Will continue to monitor.
[2016-07-10] MEDS: METOPROLOL TARTRATE 25 MG TABLET PO SCH ×2 (08:08→21:18)
[2016-07-10] MEDS: ASPIRIN 81 MG TABLET(ECOTRIN) PO SCH (08:08)
[2016-07-10] MEDS: PANTOPRAZOLE SODIUM 40 MG/VIAL (PROTONIX) IVP SCH (08:08)
[2016-07-10] MEDS: FOLIC ACID 1 MG TABLET PO SCH (08:08)
--- NOTE | 2016-07-10 09:51 | NUR ---
PATIENT RESTING AT BEDSIDE, WITH DAUGHTER AT BEDSIDE. NO SIGNS OF DISTRESS NOTED.
[2016-07-10] MEDS: INSULIN ASPART 100 UNITS/ML, 10 ML VIAL (NovoLOG) SUBCUT PRN (11:25)
--- NOTE | 2016-07-10 11:45 | NUR ---
BLOOD SUGAR 167. 2 UNITS OF NOVOLOG IS GIVEN SUBCUT. NO SIGNS OF DISTRESS NOTED.
[2016-07-10 12:46] VITALS: BP_SYST 93
--- NOTE | 2016-07-10 13:58 | NUR ---
PATIENT IS TURNED AND REPOSITIONED FOR COMFORT. ALSO HAD A BM.
--- NOTE | 2016-07-10 15:59 | NUR ---
PATIENT C/O BACK PAIN. 2MG IVP OF MORPHINE IS GIVEN. WILL REASSESS.
[2016-07-10 16:55] VITALS: BP_SYST 132
--- NOTE | 2016-07-10 18:15 | NUR ---
PATIENT BLOOD SUGAR 99. NO COVERAGE NEEDED.
[2016-07-10 19:35] VITALS: BP_SYST 110
--- NOTE | 2016-07-10 19:35 | NUR ---
INITIAL NOTE Patient resting on the bed. No acute distress. Respiration even and unlabored. On O2 2L/min via NC. Skin warm and dry to touch. SL intact to LFA, no redness, no swelling. F/C intact, drain gravity with yellow urine. Discussed the safety issue, use call light when need help, and plan of care, verbally understanding. Safety measure maintained. Call light within reached. Bed in low position, side rails up, bed alarm on. Will continue to monitor.
[2016-07-10] MEDS ORDERED: guaiFENesin ER 600 MG TAB PO ONE (21:15)
[2016-07-10] MEDS: ENOXAPARIN SODIUM 40 MG/0.4 ML SYRINGE SUBCUT SCH (21:20)
[2016-07-10] MEDS: TAMSULOSIN HCL 0.4 MG CAP PO SCH (21:20)
[2016-07-10] MEDS: ATORVASTATIN 20 MG TABLET PO SCH (21:20)
[2016-07-10] MEDS: cefTRIAXone 1 GM IVPB PREMIX 50 ML IV SCH (21:22)
--- NOTE | 2016-07-10 21:30 | NUR ---
MORPHINE GIVEN Patient c/o back pain 08/29, Morphine 2mg IVP given as ordered. No acute distress. Safety measure maintained. Call light within reached. Continue to monitor.
--- NOTE | 2016-07-10 23:10 | NUR ---
ROUND Patient resting on the bed. No acute distress. Continue on O2 via NC. Respiration even and unlabored. Safety measure maintained. Bed in low position, side rails up. Call light within reached. Continue to monitor.
--- NOTE | 2016-07-10 23:59 | NUR ---
XANAX GIVEN Patient with agitation and anxiety behavior, try to get out of bed. Xanax 0.125mg PO given as ordered. Safety measure maintained. Bed in low position, side rails up. Call light within reached. Continue ot monitor.
[2016-07-11 01:23] VITALS: BP_SYST 104
--- NOTE | 2016-07-11 02:15 | NUR ---
ROUND Patient resting on the bed. No acute distress. Continue on O2 via NC. Respiration even and unlabored. Safety measure maintained. Call light within reached. Continue to monitor.
[2016-07-11] MEDS: MORPHINE 2 MG/ML INJ. SYRINGE IVP PRN ×2 (04:20→12:48)
--- NOTE | 2016-07-11 04:23 | NUR ---
MORPHINE GIVEN Patient c/o back pain 08/29, Morphine 2mg IVP given as ordered. No acute distress. Safety measure maintained. Call light within reached. Bed in low position, side rails up. Continue to monitor.
[2016-07-11 04:51] VITALS: BP_SYST 128
--- NOTE | 2016-07-11 05:30 | NUR ---
ROUND Patient resting on the bed. No acute distress. Respiration even and unlabored. Continue on O2 2L/min via NC. Safety measure maintained. Call light within reached. Continue to monitor.
--- NOTE | 2016-07-11 06:55 | NUR ---
CLOSING NOTE Patient resting on the bed. No acute distress. Respiration even and unlabored. Continue on O2 2L/min via NC. Skin warm and dry to touch. SL intact to LFA, no redness, no swelling. F/C intact, drain gravity. All needs met. Hourly rounding during shift. Safety measure maintained. Call light within reached. Bed in low position, side rails up, bed alarm on. Will endorse to morning shift nurse.
[2016-07-11 08:00] VITALS: BP_SYST 123
--- NOTE | 2016-07-11 08:00 | NUR ---
AM NOTES-In bed, awake, alert oriented to name, birthday and place. complain of slight back pain. on o2 2l, But keep removing it most of the time. Fuller catheter draining yellow urine. dressing noted on the upper back from previous surgery. on bed alarm, call light in reach. Enc. to call for help as needed. will monitor.
[2016-07-11] MEDS: PANTOPRAZOLE SODIUM 40 MG/VIAL (PROTONIX) IVP SCH (08:49)
[2016-07-11] MEDS: FOLIC ACID 1 MG TABLET PO SCH (08:49)
[2016-07-11] MEDS: ASPIRIN 81 MG TABLET(ECOTRIN) PO SCH (08:49)
[2016-07-11] MEDS: METOPROLOL TARTRATE 25 MG TABLET PO SCH (08:50)
[2016-07-11] MEDS ORDERED: APIXABAN 2.5 MG TABLET PO SCH (09:00)
--- NOTE | 2016-07-11 10:01 | NUR ---
DISCHARGE PLANNING Faxed referral to [facility] Ext:[phone] [phone] [facility] [phone] requesting to evaluate patient for short term placement. Will follow up. Addendum: 07/11/16 at 1052 by Tierra REYEZ Meanwhile; Faxed SNF referral to [facility] [phone]. CRISTINA Escalona will follow up with family on their decision. Addendum: 07/11/16 at 1127 by Tierra Bello DP Spoke with Dr[facility] Smith liaison patient denied due to patient unable to participate in minimum three hour physical therapy. Addendum: 07/11/16 at 1250 by Tierra Bello DP Spoke with Lucinda in admitting at [facility] patient assigned to room 107A RN to report [phone], bed available anytime. ANA ROSA Alfonso made aware. Called [facility] ambulance [phone] arranged S transport package pick up 3:30pm. Placed transportation packet in nurses station.
--- NOTE | 2016-07-11 10:16 | NUR ---
notes-Resting in bed, watching tv. no distress noted, family at bedside.
[2016-07-11] MEDS ORDERED: APIX2.5T PO (10:44)
[2016-07-11] MEDS: INSULIN ASPART 100 UNITS/ML, 10 ML VIAL (NovoLOG) SUBCUT PRN (11:17)
--- NOTE | 2016-07-11 11:29 | NUR ---
DC PLANNING Per notes 07/08, pt/dtr did not want back to [facility], wanted [facility] vs [facility] acute rehab. Discussed w Dr Finney in [facility] station this am states to get eval for both places to see if will accept. Informed Tierra dc personal financial planner. Spoke w pt & dtr Emelina @ bedside to inform but per pt & Emelina want to dc back to [facility] after all. Per Emelina states they figured out the problem & pt was happy @ [facility] so prefer for dc back. Do not want acute rehab eval. Informed had choices if wanted different SNF, [facility] has list of SNF's but wants back to [facility], pt signed Choices letter. Informed Dr Michaud, [facility] will discuss w pt & dtr then put in order. After seeing pt Dr felton in order to dc snf. Spoke w pt & Emelina both agreeable w dc back to [facility]. Informed Tierra.
[2016-07-11 11:46] VITALS: BP_SYST 115
--- NOTE | 2016-07-11 12:17 | NUR ---
NOTES- In bed awake, eating lunch. family at bedside. Complain of slight back pain but per pt its tolerable. no acute distress noted.
[2016-07-11 14:03] VITALS: BP_SYST 115
--- NOTE | 2016-07-11 14:36 | NUR ---
report given to shaq at [facility].
--- NOTE | 2016-07-11 15:27 | NUR ---
PHYSICAL THERAPY CO-SIGN The Physical Therapy Progress Notes documented by Marketing Account Executive have been reviewed. I CONCUR W/UTILITY MECHANIC SUPERVISOR NOTE; Pt WILL CONT TO BENEFIT W/PT TO ADDRESS WEAKNESS AND IMPAIRED BALANCE Reviewed/Co-Signed by: Nidia Doss PT Documentation Done by: JORGE A CASTILLO UTILITY MECHANIC SUPERVISOR Addendum: 07/11/16 at 1527 by Nidia Doss PT Amended: Links added.
--- NOTE | 2016-07-11 15:56 | NUR ---
1400- picture taken on the coccyx and applied dressing. 1556- DISCHARGE PT TO [facility], ALL BELONGINGS SENT. PT AWAKE, ALERT. DENIES ANY PAIN OR DISCOMFORT. IV AND ARM BAND REMOVED. DISCHARGE PACKET GIVEN TO AMBULANCE STAFF. CONTINUED MEDICATION DISCUSSED TO PT DAUGHTER EARLIER. VERBALIZE UNDERSTANDING. NO DISTRESS NOTED. KEEP PIERSON IN. DISCHARGE
[2016-07-11 17:54] VITALS: BP_SYST 115
== END 2016-07-11 16:00 | DRG 689 ==
LOC: SED 23:37 → STU 07-08 02:25
PROVIDERS: ADMIT Internal Medicine; ATTEND Internal Medicine
DX: N39.0 Urinary tract infection, site not specified (principal); G92 Toxic encephalopathy; C85.90 Non-Hodgkin lymphoma, unspecified, unspecified site; G82.20 Paraplegia, unspecified; C79.51 Secondary malignant neoplasm of bone; C79.49 Secondary malignant neoplasm of other parts of nervous system; G95.20 Unspecified cord compression; I10 Essential (primary) hypertension; Z66 Do not resuscitate; G89.29 Other chronic pain; I48.2 Chronic atrial fibrillation; R53.81 Other malaise; E11.42 Type 2 diabetes mellitus with diabetic polyneuropathy; N40.0 Benign prostatic hyperplasia without lower urinary tract symptoms; Z79.82 Long term (current) use of aspirin; Z90.49 Acquired absence of other specified parts of digestive tract; Z79.899 Other long term (current) drug therapy; Z85.820 Personal history of malignant melanoma of skin; Z85.46 Personal history of malignant neoplasm of prostate; Z92.21 Personal history of antineoplastic chemotherapy; Z87.891 Personal history of nicotine dependence
CPT/HCPCS: 36415; 70450-TC; 71010; 80053; 81000-TC; 82962; 83605; 83735-TC; 84100-TC; 84484; 85025; 87040-TC; 87081; 87086; 87186-TC; 93005; 94760; 96365; 96375; 97110-GP; 97530-GP; 99285; C9113; J0696; J1650; J1815; J2270; J7040

== ENCOUNTER 2016-07-24 06:32 | Inpatient (IN) | payer OTHER ==
[~2016-07-24] VITALS: Ht 177.8 cm; Wt 78.0 kg
[2016-07-24] VITALS (20 sets, daily range): BP systolic 87–117
[~2016-07-24 06:32] MED LIST: ACET-2165 PO; ALPR0.2583 PO; APIX2.5T PO; ASPI-1063 PO; DOCU250C PO; DULR10 RC; FOLI-43 PO; HYDR-4100 PO; IPRA3AMP9 INH; LIDP TP; LIP80 PO; PREG75CA PO; PRO40 PO; TAMS-11 PO
[2016-07-24] MEDS ORDERED: LEVOFLOXACIN 500 MG/D5W 100 ML IV ONE ×2 (06:45→07:00)
[2016-07-24] MEDS ORDERED: ALBUTEROL SULFATE 0.083% 2.5 MG/3 ML VIAL.NEB INH ONE (06:45)
[2016-07-24] MEDS ORDERED: FUROSEMIDE 40 MG/4 ML VIAL IVP ONE ×2 (07:00→14:15)
[2016-07-24 07:07] LABS: BASOPHILS # (AUTO) 0.2 K/uL (0.0-0.2); BASOPHILS % (AUTO) 1.4 % (0.0-2.0); EOSINOPHILS # (AUTO) 0.1 K/uL (0.0-0.4); EOSINOPHILS % (AUTO) 0.6 % (0.0-4.0); HEMATOCRIT 37.7 % (36-54); HEMOGLOBIN 12.2 g/dL (14.0-18.0); LYMPHOCYTES # (AUTO) 1.7 K/uL (1.0-5.5); LYMPHOCYTES % (AUTO) 14.9 % (20.5-51.5); MEAN CORPUSCULAR HEMOGLOBIN 30 pg (27-31); MEAN CORPUSCULAR HGB CONC 33 % (32-36); MEAN CORPUSCULAR VOLUME 92 fL (79.0-98.0); MONOCYTES # (AUTO) 0.8 K/uL (0.0-1.0); MONOCYTES % (AUTO) 7.3 % (1.7-9.3); NEUTROPHILS # (AUTO) 8.8 K/uL (1.8-7.7); NEUTROPHILS % (AUTO) 75.8 % (40.0-70.0); PLATELET COUNT (AUTO) 186 K/uL (130-430); RED CELL DISTRIBUTION WIDTH 13.6 % (9.0-15.0); WHITE BLOOD COUNT (AUTO) 11.6 K/uL (4.8-10.8)
[2016-07-24 07:16] LABS: INR 1.1 (0.80-1.20); PROTHROMBIN TIME 11.5 SECS (9.5-12.5)
[2016-07-24 07:23] LABS: ALANINE AMINOTRANSFERASE 137 U/L (12-78); ALBUMIN 2.2 g/dL (3.4-4.8); ANION GAP 3 (5-15); ASPARTATE AMINOTRANSFERASE 77 U/L (10-37); CALCIUM 9.3 mg/dL (8.4-11.0); CHLORIDE 97 mmol/L (98-107); GLUCOSE 157 mg/dL (70-99); POTASSIUM 3.9 mmol/L (3.5-5.1); SODIUM SERUM 135 mmol/L (136-145); TOTAL BILIRUBIN 1.2 mg/dL (0.0-1.0); TOTAL PROTEIN, SERUM 5.9 g/dL (6.4-8.3); UREA NITROGEN, BLOOD 9 mg/dL (8-21)
[2016-07-24] MEDS: *LOVENOX0.75MG/KG Q12H/PHARMACY XX SCH (07:45)
[2016-07-24] MEDS ORDERED: NITROGLYCERIN 1 INCH (GM) OINT. TP SCH (07:45)
[2016-07-24] MEDS ORDERED: METOPROLOL TARTRATE 5 MG/5 ML VIAL IVP SCH (07:45)
[2016-07-24] MEDS ORDERED: ENOXAPARIN SODIUM 60 MG/0.6 ML SYRINGE SUBCUT ONE (07:45)
[2016-07-24] MEDS ORDERED: methylPREDNISolone SOD SUCC/PF 62.5 MG/ML VIAL ONE (08:07)
[2016-07-24] MEDS ORDERED: ASPIRIN 325 MG TABLET ONE (08:07)
[2016-07-24] MEDS ORDERED: ENOXAPARIN SODIUM 60 MG/0.6 ML SYRINGE ONE (08:07)
[2016-07-24] MEDS ORDERED: NITROGLYCERIN 1 INCH (GM) OINT. ONE (08:08)
[2016-07-24 08:36] LABS: ABG TOTAL HEMOGLOBIN 12.7 G/dL (12.0-18.0); BLOOD GAS BASE EXCESS 4.5 mmol/L (-3.0-3.0); BLOOD GAS COHb% 0.6 % (0.5-1.5); BLOOD GAS HHB 8.2 % (0.0-6.0); BLOOD O2Hb% 90.7 % (94.0-97.0)
[2016-07-24] MEDS: ASPIRIN 325 MG TABLET (ECOTRIN) PO SCH ×2 (09:05→09:12)
[2016-07-24] MEDS: methylPREDNISolone SOD SUCC/PF 62.5 MG/ML VIAL IVP SCH ×2 (09:06→09:10)
[2016-07-24] MEDS ORDERED: METOPROLOL TARTRATE 5 MG/5 ML VIAL IVP PRN (10:00)
[2016-07-24 10:07] LABS: BILIRUBIN,URINE NEGATIVE (NEGATIVE); BLOOD, URINE 3+ (NEGATIVE); CLARITY/URINE CLEAR (CLEAR); COLOR,URINE YELLOW (YELLOW); GLUCOSE,URINE NEGATIVE (NEGATIVE); KETONES,URINE NEGATIVE (NEGATIVE); LEUKOCYTE ESTERASE ,URINE NEGATIVE (NEGATIVE); NITRITE, URINE NEGATIVE (NEGATIVE); PH,URINE 7.5 (5.0-8.0); PROTEIN URINE NEGATIVE (NEGATIVE); UROBILINOGEN,URINE 0.2 (0.2-1.0)
[2016-07-24 10:25] LABS: BACTERIA,URINE FEW /HPF (None Seen); MUCUS,URINE None Seen /LPF (None Seen); RBC,URINE 20-50 /HPF (0-3); WBC,URINE 0-3 /HPF (0-3)
[2016-07-24] MEDS: MORPHINE 2 MG/ML INJ. SYRINGE IVP PRN ×2 (10:45→16:13)
[2016-07-24] MEDS: IPRATROPIUM/ALBUTEROL SULFATE 3 ML AMPUL.NEB INH SCH ×4 (11:10→23:23)
[2016-07-24] MEDS: NITROGLYCERIN 0.2 MG/HR PATCH.TD24 TD SCH (13:42)
[2016-07-24] MEDS ORDERED: ONDANSETRON HCL 4 MG/2 ML VIAL IVP PRN (14:00)
[2016-07-24] MEDS ORDERED: PANTOPRAZOLE SODIUM 40 MG/VIAL (PROTONIX) IVP ONE (14:15)
[2016-07-24 14:50] LABS: BLOOD GAS PH 7.477 (7.350-7.450)
[2016-07-24 14:51] LABS: ABG TOTAL HEMOGLOBIN 12.7 G/dL (12.0-18.0); BLOOD GAS COHb% 0.7 % (0.5-1.5); BLOOD GAS HHB 7.2 % (0.0-6.0); BLOOD O2Hb% 91.6 % (94.0-97.0)
[2016-07-24 16:16] LABS: BLOOD GAS PH 7.484 (7.350-7.450)
[2016-07-24 16:17] LABS: ABG TOTAL HEMOGLOBIN 12.5 G/dL (12.0-18.0); BLOOD GAS BASE EXCESS 8.5 mmol/L (-3.0-3.0); BLOOD GAS COHb% 0.1 % (0.5-1.5); BLOOD GAS HHB 3.4 % (0.0-6.0); BLOOD O2Hb% 96.5 % (94.0-97.0)
[2016-07-24] MEDS ORDERED: FUROSEMIDE 40 MG/4 ML VIAL IVP SCH (21:00)
[2016-07-24] MEDS ORDERED: ENOXAPARIN SODIUM 60 MG/0.6 ML SYRINGE SUBCUT SCH (21:00)
[2016-07-25] VITALS (23 sets, daily range): BP systolic 89–137
[2016-07-25] MEDS: IPRATROPIUM/ALBUTEROL SULFATE 3 ML AMPUL.NEB INH SCH ×6 (04:06→23:15)
[2016-07-25 06:49] LABS: EOSINOPHILS % (AUTO) 0.2 % (0.0-4.0); HEMATOCRIT 33.3 % (36-54); HEMOGLOBIN 11.2 g/dL (14.0-18.0); LYMPHOCYTES # (AUTO) 0.9 K/uL (1.0-5.5); LYMPHOCYTES % (AUTO) 8.8 % (20.5-51.5); MEAN CORPUSCULAR HEMOGLOBIN 30 pg (27-31); MEAN CORPUSCULAR HGB CONC 34 % (32-36); MEAN CORPUSCULAR VOLUME 91 fL (79.0-98.0); MONOCYTES % (AUTO) 10.1 % (1.7-9.3); NEUTROPHILS # (AUTO) 8.1 K/uL (1.8-7.7); NEUTROPHILS % (AUTO) 80.9 % (40.0-70.0); PLATELET COUNT (AUTO) 188 K/uL (130-430); RED BLOOD CELL COUNT(AUTO) 3.68 MIL/uL (4.2-6.2); RED CELL DISTRIBUTION WIDTH 13.7 % (9.0-15.0)
[2016-07-25 06:55] LABS: ASPARTATE AMINOTRANSFERASE 56 U/L (10-37); CALCIUM 9.3 mg/dL (8.4-11.0); PHOSPHORUS 4.3 mg/dL (2.7-4.5); SODIUM SERUM 138 mmol/L (136-145); TOTAL PROTEIN, SERUM 5.8 g/dL (6.4-8.3); UREA NITROGEN, BLOOD 13 mg/dL (8-21)
[2016-07-25 07:32] LABS: ALANINE AMINOTRANSFERASE 111 U/L (12-78); ALBUMIN 2.2 g/dL (3.4-4.8); ANION GAP 4 (5-15); CHLORIDE 97 mmol/L (98-107); CREATININE 0.82 mg/dL (0.55-1.30); GLUCOSE 114 mg/dL (70-99)
[2016-07-25] MEDS ORDERED: ALPRAZolam 0.25 MG TABLET PO PRN (08:00)
[2016-07-25] MEDS ORDERED: ACETAMINOPHEN 325 MG TABLET PO PRN (08:00)
[2016-07-25] MEDS ORDERED: BISACODYL 10 MG/SUPPOSITORY RC PRN (08:00)
[2016-07-25] MEDS: PREGABALIN 75 MG CAPSULE (LYRICA) PO SCH ×2 (08:32→20:49)
[2016-07-25] MEDS: LEVOFLOXACIN 500 MG/D5W 100 ML IV SCH (08:32)
[2016-07-25] MEDS: APIXABAN 2.5 MG TABLET PO SCH ×2 (08:32→20:48)
[2016-07-25] MEDS: PANTOPRAZOLE SODIUM 40 MG/VIAL (PROTONIX) IVP SCH (08:32)
[2016-07-25] MEDS: FOLIC ACID 1 MG TABLET PO SCH (08:33)
[2016-07-25] MEDS: ASPIRIN 81 MG TAB.CHEW PO SCH (08:33)
[2016-07-25] MEDS: NITROGLYCERIN 0.2 MG/HR PATCH.TD24 TD SCH (08:35)
[2016-07-25] MEDS: HYDROcodone/ACETAMIN 10-325 MG TAB PO PRN (08:39)
[2016-07-25] MEDS: POTASSIUM CHLORIDE 20 MEQ TAB.PRT.SR PO SCH ×2 (08:39→20:48)
[2016-07-25] MEDS: FUROSEMIDE 40 MG/4 ML VIAL IVP SCH ×2 (08:41→20:47)
[2016-07-25] MEDS: *LOVENOX0.75MG/KG Q12H/PHARMACY XX SCH (09:00)
[2016-07-25] MEDS: CARVEDILOL 3.125 MG TABLET (COREG) PO SCH ×2 (09:00→20:47)
[2016-07-25] MEDS ORDERED: LEVOFLOXACIN 500 MG/D5W 100 ML IV SCH (09:00)
[2016-07-25] MEDS: LIDOCAINE PATCH 5% 1 EA TP SCH (10:33)
[2016-07-25] MEDS ORDERED: IOHEXOL 350 mgI/mL, 150 ML INFUS..BTL IV ONE (16:43)
[2016-07-25] MEDS: D5NS 1,000 ML IV SCH (17:52)
[2016-07-25] MEDS: ATORVASTATIN 20 MG TABLET PO SCH (20:48)
[2016-07-25] MEDS: TAMSULOSIN HCL 0.4 MG CAP PO SCH (20:48)
[2016-07-25] MEDS ORDERED: ATORVASTATIN 20 MG TABLET ONE (20:51)
[2016-07-26] VITALS (17 sets, daily range): BP systolic 89–117
[2016-07-26] MEDS: IPRATROPIUM/ALBUTEROL SULFATE 3 ML AMPUL.NEB INH SCH ×5 (03:59→20:13)
[2016-07-26 06:29] LABS: BASOPHILS % (AUTO) 0.5 % (0.0-2.0); EOSINOPHILS % (AUTO) 0.5 % (0.0-4.0); HEMATOCRIT 33.5 % (36-54); HEMOGLOBIN 11.1 g/dL (14.0-18.0); LYMPHOCYTES # (AUTO) 0.9 K/uL (1.0-5.5); LYMPHOCYTES % (AUTO) 10.8 % (20.5-51.5); MEAN CORPUSCULAR HEMOGLOBIN 30 pg (27-31); MEAN CORPUSCULAR HGB CONC 33 % (32-36); MEAN CORPUSCULAR VOLUME 91 fL (79.0-98.0); MONOCYTES # (AUTO) 0.9 K/uL (0.0-1.0); MONOCYTES % (AUTO) 10.5 % (1.7-9.3); NEUTROPHILS # (AUTO) 6.4 K/uL (1.8-7.7); NEUTROPHILS % (AUTO) 77.7 % (40.0-70.0); PLATELET COUNT (AUTO) 179 K/uL (130-430); RED BLOOD CELL COUNT(AUTO) 3.67 MIL/uL (4.2-6.2); RED CELL DISTRIBUTION WIDTH 14.1 % (9.0-15.0); WHITE BLOOD COUNT (AUTO) 8.2 K/uL (4.8-10.8)
[2016-07-26 06:58] LABS: SODIUM SERUM 135 mmol/L (136-145)
[2016-07-26 06:59] LABS: CHLORIDE 97 mmol/L (98-107); POTASSIUM 2.8 mmol/L (3.5-5.1)
[2016-07-26 07:00] LABS: ALANINE AMINOTRANSFERASE 145 U/L (12-78); ANION GAP 3 (5-15); ASPARTATE AMINOTRANSFERASE 124 U/L (10-37); CALCIUM 9.1 mg/dL (8.4-11.0); CREATININE 0.78 mg/dL (0.55-1.30); GLUCOSE 113 mg/dL (70-99); TOTAL PROTEIN, SERUM 5.5 g/dL (6.4-8.3); UREA NITROGEN, BLOOD 14 mg/dL (8-21)
[2016-07-26] MEDS: PANTOPRAZOLE SODIUM 40 MG/VIAL (PROTONIX) IVP SCH (08:26)
[2016-07-26] MEDS: FUROSEMIDE 40 MG/4 ML VIAL IVP SCH ×2 (08:26→20:31)
[2016-07-26] MEDS: POTASSIUM CHLORIDE 20 MEQ/PKT PACKET PO SCH ×2 (08:27→20:56)
[2016-07-26] MEDS: PREGABALIN 75 MG CAPSULE (LYRICA) PO SCH ×2 (08:27→20:54)
[2016-07-26] MEDS: FOLIC ACID 1 MG TABLET PO SCH (08:27)
[2016-07-26] MEDS: CARVEDILOL 3.125 MG TABLET (COREG) PO SCH ×2 (08:27→20:57)
[2016-07-26] MEDS: APIXABAN 2.5 MG TABLET PO SCH ×2 (08:27→20:55)
[2016-07-26] MEDS: POTASSIUM CHLORIDE 20 MEQ TAB.PRT.SR PO SCH ×2 (08:28→20:55)
[2016-07-26] MEDS: ASPIRIN 81 MG TAB.CHEW PO SCH (08:28)
[2016-07-26] MEDS: LIDOCAINE PATCH 5% 1 EA TP SCH (08:28)
[2016-07-26] MEDS: LEVOFLOXACIN 500 MG/D5W 100 ML IV SCH (08:28)
[2016-07-26] MEDS: NITROGLYCERIN 0.2 MG/HR PATCH.TD24 TD SCH (08:28)
[2016-07-26] MEDS: *LOVENOX0.75MG/KG Q12H/PHARMACY XX SCH (09:00)
[2016-07-26] MEDS: D5NS 1,000 ML IV SCH (16:00)
[2016-07-26] MEDS: ATORVASTATIN 20 MG TABLET PO SCH (20:54)
[2016-07-26] MEDS: TAMSULOSIN HCL 0.4 MG CAP PO SCH (20:55)
[2016-07-26 22:03] LABS: BF APPEARANCE UNSPUN SLIGHTLY CLOUDY (CLEAR); BODY FLUID COLOR RED (LT YELLOW); SOURCE/TYPE ,BODY FLUID PLEURAL
[2016-07-26 22:04] LABS: BODY FLUID TOTAL VOLUME 400 mL
[2016-07-26 22:21] LABS: LYMPHOCYTES, BODY FLUID 37 %; MONOCYTES,BODY FLUID 5 %; NEUTROPHIL, BODY FLUID 58 %; RBC, BODY FLUID 3180 /uL; WBC, BODY FLUID 69 /uL
[2016-07-26] MEDS: HYDROcodone/ACETAMIN 10-325 MG TAB PO PRN (22:21)
[2016-07-27] VITALS (8 sets, daily range): BP systolic 90–136
[2016-07-27] MEDS: MORPHINE 2 MG/ML INJ. SYRINGE IVP PRN ×2 (00:02→11:56)
[2016-07-27] MEDS: IPRATROPIUM/ALBUTEROL SULFATE 3 ML AMPUL.NEB INH SCH ×7 (00:55→22:46)
[2016-07-27 06:32] LABS: BASOPHILS % (AUTO) 0.1 % (0.0-2.0); EOSINOPHILS # (AUTO) 0.1 K/uL (0.0-0.4); EOSINOPHILS % (AUTO) 1.3 % (0.0-4.0); HEMATOCRIT 33.5 % (36-54); LYMPHOCYTES # (AUTO) 1.1 K/uL (1.0-5.5); LYMPHOCYTES % (AUTO) 12.3 % (20.5-51.5); MEAN CORPUSCULAR HEMOGLOBIN 30 pg (27-31); MEAN CORPUSCULAR HGB CONC 33 % (32-36); MEAN CORPUSCULAR VOLUME 92 fL (79.0-98.0); MONOCYTES # (AUTO) 0.6 K/uL (0.0-1.0); MONOCYTES % (AUTO) 7.4 % (1.7-9.3); NEUTROPHILS % (AUTO) 78.9 % (40.0-70.0); PLATELET COUNT (AUTO) 175 K/uL (130-430); RED BLOOD CELL COUNT(AUTO) 3.62 MIL/uL (4.2-6.2); RED CELL DISTRIBUTION WIDTH 13.8 % (9.0-15.0); WHITE BLOOD COUNT (AUTO) 8.8 K/uL (4.8-10.8)
[2016-07-27 06:50] LABS: ALANINE AMINOTRANSFERASE 151 U/L (12-78); ALBUMIN 1.9 g/dL (3.4-4.8); ASPARTATE AMINOTRANSFERASE 129 U/L (10-37); CALCIUM 8.9 mg/dL (8.4-11.0); CHLORIDE 102 mmol/L (98-107); CREATININE 0.69 mg/dL (0.55-1.30); GLUCOSE 105 mg/dL (70-99); POTASSIUM 4.1 mmol/L (3.5-5.1); SODIUM SERUM 136 mmol/L (136-145); TOTAL BILIRUBIN 1.3 mg/dL (0.0-1.0); TOTAL PROTEIN, SERUM 5.2 g/dL (6.4-8.3); UREA NITROGEN, BLOOD 17 mg/dL (8-21)
[2016-07-27 06:56] LABS: ANION GAP < 3 (5-15)
[2016-07-27] MEDS: HYDROcodone/ACETAMIN 10-325 MG TAB PO PRN ×3 (08:30→18:28)
[2016-07-27] MEDS: CARVEDILOL 3.125 MG TABLET (COREG) PO SCH ×2 (09:00→21:35)
[2016-07-27] MEDS: NITROGLYCERIN 0.2 MG/HR PATCH.TD24 TD SCH (09:00)
[2016-07-27] MEDS: POTASSIUM CHLORIDE 20 MEQ TAB.PRT.SR PO SCH ×2 (10:15→21:35)
[2016-07-27] MEDS: FUROSEMIDE 40 MG/4 ML VIAL IVP SCH ×2 (10:15→21:34)
[2016-07-27] MEDS: PANTOPRAZOLE SODIUM 40 MG/VIAL (PROTONIX) IVP SCH (10:15)
[2016-07-27] MEDS: ASPIRIN 81 MG TAB.CHEW PO SCH (10:16)
[2016-07-27] MEDS: APIXABAN 2.5 MG TABLET PO SCH ×2 (10:16→21:34)
[2016-07-27] MEDS: FOLIC ACID 1 MG TABLET PO SCH (10:16)
[2016-07-27] MEDS: PREGABALIN 75 MG CAPSULE (LYRICA) PO SCH ×2 (10:16→21:35)
[2016-07-27] MEDS: LIDOCAINE PATCH 5% 1 EA TP SCH (10:16)
[2016-07-27] MEDS: POTASSIUM CHLORIDE 20 MEQ/PKT PACKET PO SCH ×2 (10:17→21:35)
[2016-07-27] MEDS: LEVOFLOXACIN 500 MG/D5W 100 ML IV SCH (10:19)
[2016-07-27] MEDS: D5NS 1,000 ML IV SCH (18:16)
[2016-07-27] MEDS: TAMSULOSIN HCL 0.4 MG CAP PO SCH (21:35)
[2016-07-27] MEDS: ATORVASTATIN 20 MG TABLET PO SCH (21:35)
[2016-07-28] VITALS (8 sets, daily range): BP systolic 84–116
[2016-07-28] MEDS: IPRATROPIUM/ALBUTEROL SULFATE 3 ML AMPUL.NEB INH SCH ×6 (03:20→23:33)
[2016-07-28] MEDS: HYDROcodone/ACETAMIN 10-325 MG TAB PO PRN ×3 (06:39→20:59)
[2016-07-28] MEDS: PANTOPRAZOLE SODIUM 40 MG/VIAL (PROTONIX) IVP SCH (08:36)
[2016-07-28] MEDS: FUROSEMIDE 40 MG/4 ML VIAL IVP SCH ×2 (08:37→21:00)
[2016-07-28] MEDS: APIXABAN 2.5 MG TABLET PO SCH ×2 (08:38→20:53)
[2016-07-28] MEDS: PREGABALIN 75 MG CAPSULE (LYRICA) PO SCH ×2 (08:38→20:53)
[2016-07-28] MEDS: POTASSIUM CHLORIDE 20 MEQ TAB.PRT.SR PO SCH (08:38)
[2016-07-28] MEDS: NITROGLYCERIN 0.2 MG/HR PATCH.TD24 TD SCH (08:38)
[2016-07-28] MEDS: ASPIRIN 81 MG TAB.CHEW PO SCH (08:38)
[2016-07-28] MEDS: POTASSIUM CHLORIDE 20 MEQ/PKT PACKET PO SCH ×3 (08:38→20:57)
[2016-07-28] MEDS: CARVEDILOL 3.125 MG TABLET (COREG) PO SCH ×2 (08:39→20:54)
[2016-07-28] MEDS: FOLIC ACID 1 MG TABLET PO SCH (08:39)
[2016-07-28] MEDS: LEVOFLOXACIN 500 MG/D5W 100 ML IV SCH (08:40)
[2016-07-28] MEDS: LIDOCAINE PATCH 5% 1 EA TP SCH (09:08)
[2016-07-28] MEDS ORDERED: BALSAM PERU/CASTOR OIL 60 GM OINT...G. TP PRN (11:00)
[2016-07-28] MEDS: BALSAM PERU/CASTOR OIL 60 GM OINT...G. TP SCH (11:00)
[2016-07-28] MEDS: D5NS 1,000 ML IV SCH (17:26)
[2016-07-28 18:12] LABS: BODY FLUID GLUCOSE 133 mg/dL; BODY FLUID TOTAL PROTEIN 2.2 g/dL
[2016-07-28] MEDS: ATORVASTATIN 20 MG TABLET PO SCH (20:55)
[2016-07-28] MEDS: TAMSULOSIN HCL 0.4 MG CAP PO SCH (20:55)
[2016-07-29 04:00] VITALS: BP_SYST 96
[2016-07-29] MEDS: IPRATROPIUM/ALBUTEROL SULFATE 3 ML AMPUL.NEB INH SCH ×3 (04:02→11:33)
[2016-07-29 06:19] LABS: ANION GAP 3 (5-15); CALCIUM 9.1 mg/dL (8.4-11.0); CHLORIDE 97 mmol/L (98-107); CREATININE 0.72 mg/dL (0.55-1.30); GLUCOSE 108 mg/dL (70-99); POTASSIUM 3.7 mmol/L (3.5-5.1); SODIUM SERUM 134 mmol/L (136-145); UREA NITROGEN, BLOOD 17 mg/dL (8-21)
[2016-07-29 06:36] LABS: BASOPHILS % (AUTO) 0.4 % (0.0-2.0); EOSINOPHILS # (AUTO) 0.4 K/uL (0.0-0.4); EOSINOPHILS % (AUTO) 4.2 % (0.0-4.0); HEMOGLOBIN 11.1 g/dL (14.0-18.0); LYMPHOCYTES # (AUTO) 1.2 K/uL (1.0-5.5); LYMPHOCYTES % (AUTO) 11.9 % (20.5-51.5); MEAN CORPUSCULAR HEMOGLOBIN 30 pg (27-31); MEAN CORPUSCULAR HGB CONC 33 % (32-36); MEAN CORPUSCULAR VOLUME 92 fL (79.0-98.0); MONOCYTES # (AUTO) 0.5 K/uL (0.0-1.0); MONOCYTES % (AUTO) 5.4 % (1.7-9.3); NEUTROPHILS # (AUTO) 7.7 K/uL (1.8-7.7); NEUTROPHILS % (AUTO) 78.1 % (40.0-70.0); PLATELET COUNT (AUTO) 180 K/uL (130-430); RED BLOOD CELL COUNT(AUTO) 3.68 MIL/uL (4.2-6.2); RED CELL DISTRIBUTION WIDTH 13.8 % (9.0-15.0); WHITE BLOOD COUNT (AUTO) 9.8 K/uL (4.8-10.8)
[2016-07-29 08:00] VITALS: BP_SYST 113
[2016-07-29] MEDS: LIDOCAINE PATCH 5% 1 EA TP SCH (09:14)
[2016-07-29] MEDS: APIXABAN 2.5 MG TABLET PO SCH (09:14)
[2016-07-29] MEDS: POTASSIUM CHLORIDE 20 MEQ/PKT PACKET PO SCH (09:14)
[2016-07-29] MEDS: NITROGLYCERIN 0.2 MG/HR PATCH.TD24 TD SCH (09:14)
[2016-07-29] MEDS: PREGABALIN 75 MG CAPSULE (LYRICA) PO SCH (09:14)
[2016-07-29] MEDS: LEVOFLOXACIN 500 MG/D5W 100 ML IV SCH (09:14)
[2016-07-29] MEDS: ASPIRIN 81 MG TAB.CHEW PO SCH (09:14)
[2016-07-29] MEDS: PANTOPRAZOLE SODIUM 40 MG/VIAL (PROTONIX) IVP SCH (09:15)
[2016-07-29] MEDS: FUROSEMIDE 40 MG/4 ML VIAL IVP SCH (09:15)
[2016-07-29] MEDS: FOLIC ACID 1 MG TABLET PO SCH (09:15)
[2016-07-29] MEDS: CARVEDILOL 3.125 MG TABLET (COREG) PO SCH (09:15)
[2016-07-29] MEDS: BALSAM PERU/CASTOR OIL 60 GM OINT...G. TP SCH (09:16)
[2016-07-29] MEDS: HYDROcodone/ACETAMIN 10-325 MG TAB PO PRN (11:23)
[2016-07-29 12:00] VITALS: BP_SYST 86
[2016-07-29 12:49] VITALS: BP_SYST 98
== END 2016-07-29 14:11 | DRG 840 ==
LOC: SED 06:32 → STU 07:32 → SIC 09:22 → STU 07-26 16:42
PROVIDERS: ADMIT Internal Medicine; ATTEND Internal Medicine
PROC: 5A09357 Assistance with Respiratory Ventilation, Less than 24 Consecutive Hours, Continuous Positive Airway Pressure (ICD-10-PCS; 2016-07-24)
PROC: 0W9B3ZZ Drainage of Left Pleural Cavity, Percutaneous Approach (ICD-10-PCS; principal; 2016-07-26)
DX: C85.90 Non-Hodgkin lymphoma, unspecified, unspecified site (principal); J18.9 Pneumonia, unspecified organism; J96.00 Acute respiratory failure, unspecified whether with hypoxia or hypercapnia; I50.43 Acute on chronic combined systolic (congestive) and diastolic (congestive) heart failure; J93.9 Pneumothorax, unspecified; G82.20 Paraplegia, unspecified; C79.51 Secondary malignant neoplasm of bone; I11.0 Hypertensive heart disease with heart failure; I48.2 Chronic atrial fibrillation; Z66 Do not resuscitate; G89.29 Other chronic pain; M54.9 Dorsalgia, unspecified; L89.309 Pressure ulcer of unspecified buttock, unspecified stage; E11.9 Type 2 diabetes mellitus without complications; K21.9 Gastro-esophageal reflux disease without esophagitis; N40.0 Benign prostatic hyperplasia without lower urinary tract symptoms; Z51.5 Encounter for palliative care; Z79.899 Other long term (current) drug therapy; Z79.82 Long term (current) use of aspirin; Z87.891 Personal history of nicotine dependence; Z90.49 Acquired absence of other specified parts of digestive tract; Z85.46 Personal history of malignant neoplasm of prostate; Z85.820 Personal history of malignant melanoma of skin; Z79.01 Long term (current) use of anticoagulants; Z99.3 Dependence on wheelchair
CPT/HCPCS: 32555; 36415; 36600; 71010; 71275; 80048; 80053; 81000-TC; 82803-TC; 82947-TC; 83605; 83735-TC; 83880; 84100-TC; 84157-TC; 84484; 85025; 85379; 85610-TC; 87040-TC; 87070-TC; 87081; 87116; 88108; 88305; 89051-TC; 89060-TC; 93005; 93306; 94640; 94660; 94760; 96365; 96372; 96375; 99285; A6209; C1729; C9113; J1650; J1940; J1956; J2270; J2930; J7042; Q9967

== ENCOUNTER 2016-07-31 10:47 | Inpatient (IN) | payer OTHER ==
[~2016-07-31] VITALS: Ht 175.3 cm; Wt 76.3 kg
[2016-07-31 10:47] VITALS: BP_SYST 127
[~2016-07-31 10:47] MED LIST changes: -TAMS-11 PO
[2016-07-31] MEDS ORDERED: IPRATROPIUM BROM 0.5 MG/2.5 ML VIAL.NEB (ATROVENT) INH ONE (11:00)
[2016-07-31] MEDS ORDERED: methylPREDNISolone SOD SUCC/PF 62.5 MG/ML VIAL IVP ONE (11:00)
[2016-07-31] MEDS ORDERED: ALBUTEROL SULFATE 0.083% 2.5 MG/3 ML VIAL.NEB INH ONE (11:00)
[2016-07-31] MEDS ORDERED: LEVOFLOXACIN 500 MG/D5W 100 ML IV ONE (11:00)
[2016-07-31 11:14] LABS: BASOPHILS % (AUTO) 0.2 % (0.0-2.0); EOSINOPHILS # (AUTO) 0.1 K/uL (0.0-0.4); EOSINOPHILS % (AUTO) 1.1 % (0.0-4.0); HEMATOCRIT 37.3 % (36-54); HEMOGLOBIN 12.2 g/dL (14.0-18.0); LYMPHOCYTES # (AUTO) 1.2 K/uL (1.0-5.5); LYMPHOCYTES % (AUTO) 13.2 % (20.5-51.5); MEAN CORPUSCULAR HEMOGLOBIN 30 pg (27-31); MEAN CORPUSCULAR HGB CONC 33 % (32-36); MEAN CORPUSCULAR VOLUME 90 fL (79.0-98.0); MONOCYTES # (AUTO) 0.6 K/uL (0.0-1.0); MONOCYTES % (AUTO) 6.5 % (1.7-9.3); NEUTROPHILS # (AUTO) 7.3 K/uL (1.8-7.7); PLATELET COUNT (AUTO) 197 K/uL (130-430); RED BLOOD CELL COUNT(AUTO) 4.15 MIL/uL (4.2-6.2); RED CELL DISTRIBUTION WIDTH 14.2 % (9.0-15.0); WHITE BLOOD COUNT (AUTO) 9.2 K/uL (4.8-10.8)
[2016-07-31 11:22] LABS: PROTHROMBIN TIME 11.1 SECS (9.5-12.5)
[2016-07-31 11:29] LABS: ANION GAP 4 (5-15); CALCIUM 9.7 mg/dL (8.4-11.0); CHLORIDE 98 mmol/L (98-107); GLUCOSE 145 mg/dL (70-99); POTASSIUM 3.9 mmol/L (3.5-5.1); SODIUM SERUM 136 mmol/L (136-145); UREA NITROGEN, BLOOD 17 mg/dL (8-21)
[2016-07-31 11:34] LABS: ALANINE AMINOTRANSFERASE 135 U/L (12-78); ALBUMIN 2.2 g/dL (3.4-4.8); ASPARTATE AMINOTRANSFERASE 86 U/L (10-37); TOTAL BILIRUBIN 1.3 mg/dL (0.0-1.0); TOTAL PROTEIN, SERUM 6.1 g/dL (6.4-8.3)
[2016-07-31 11:42] LABS: BILIRUBIN,URINE NEGATIVE (NEGATIVE); BLOOD, URINE NEGATIVE (NEGATIVE); CLARITY/URINE CLEAR (CLEAR); COLOR,URINE YELLOW (YELLOW); GLUCOSE,URINE NEGATIVE (NEGATIVE); KETONES,URINE NEGATIVE (NEGATIVE); LEUKOCYTE ESTERASE ,URINE TRACE (NEGATIVE); NITRITE, URINE NEGATIVE (NEGATIVE); PROTEIN URINE NEGATIVE (NEGATIVE)
[2016-07-31] MEDS ORDERED: FUROSEMIDE 40 MG/4 ML VIAL IVP ONE (11:45)
[2016-07-31 11:55] LABS: BACTERIA,URINE FEW /HPF (None Seen); RBC,URINE NONE SEEN /HPF (0-3); YEAST,URINE Many /HPF (None Seen)
[2016-07-31 11:56] LABS: MUCUS,URINE 2+ /LPF (None Seen)
[2016-07-31] MEDS ORDERED: ASPIRIN 81 MG TAB.CHEW PO ONE (12:00)
[2016-07-31] MEDS ORDERED: ACETAMINOPHEN 325 MG TABLET PO PRN (12:30)
[2016-07-31] MEDS ORDERED: BISACODYL 10 MG/SUPPOSITORY RC PRN (12:30)
[2016-07-31 13:30] VITALS: BP_SYST 98
[2016-07-31] MEDS: NORMAL SALINE 5 ML DISP.SYRIN IVF SCH ×2 (14:00→21:30)
[2016-07-31 14:45] VITALS: BP_SYST 96
[2016-07-31 14:57] LABS: BLOOD GAS PH 7.479 (7.350-7.450)
[2016-07-31 14:58] LABS: ABG TOTAL HEMOGLOBIN 12.5 G/dL (12.0-18.0); BLOOD GAS HHB 14.3 % (0.0-6.0)
[2016-07-31] MEDS ORDERED: ALBUTEROL SULFATE 0.083% 2.5 MG/3 ML VIAL.NEB INH SCH (15:00)
[2016-07-31 16:39] VITALS: BP_SYST 103
[2016-07-31 16:57] VITALS: BP_SYST 103
[2016-07-31] MEDS ORDERED: MIDAZOLAM HCL 5 MG/5 ML VIAL IVP ONE (17:30)
[2016-07-31] MEDS ORDERED: LIDOCAINE 1% 10 MG/ML, 20 ML MDV INJ ONE (17:30)
[2016-07-31] MEDS: PIPERACILLIN/TAZO 3.375/DEX-IS 50 ML IV SCH ×2 (18:35→23:28)
[2016-07-31] MEDS: LEVALBUTEROL HCL 0.63 MG/3 ML VIAL.NEB INH SCH (20:03)
[2016-07-31] MEDS: IPRATROPIUM BROM 0.5 MG/2.5 ML VIAL.NEB (ATROVENT) INH SCH (20:03)
[2016-07-31 20:05] VITALS: BP_SYST 109
[2016-07-31] MEDS ORDERED: ATORVASTATIN 20 MG TABLET PO SCH (21:00)
[2016-07-31] MEDS ORDERED: PREGABALIN 75 MG CAPSULE (LYRICA) PO SCH ×2 (21:00)
[2016-07-31] MEDS: DOCUSATE SODIUM 250 MG CAPSULE PO SCH (21:29)
[2016-07-31] MEDS: methylPREDNISolone SOD SUCC 40 MG/ML VIAL IVP SCH (21:30)
[2016-08-01] MEDS: LEVALBUTEROL HCL 0.63 MG/3 ML VIAL.NEB INH SCH ×4 (00:37→19:42)
[2016-08-01] MEDS: IPRATROPIUM BROM 0.5 MG/2.5 ML VIAL.NEB (ATROVENT) INH SCH ×4 (00:37→19:43)
[2016-08-01 01:25] VITALS: BP_SYST 116
[2016-08-01] MEDS: MORPHINE 2 MG/ML INJ. SYRINGE IVP PRN (04:55)
[2016-08-01] MEDS: methylPREDNISolone SOD SUCC 40 MG/ML VIAL IVP SCH ×3 (05:42→21:27)
[2016-08-01] MEDS: PIPERACILLIN/TAZO 3.375/DEX-IS 50 ML IV SCH ×3 (05:43→18:35)
[2016-08-01] MEDS: NORMAL SALINE 5 ML DISP.SYRIN IVF SCH ×3 (06:00→21:28)
[2016-08-01 06:05] VITALS: BP_SYST 111
[2016-08-01 06:37] LABS: EOSINOPHILS % (AUTO) 0.1 % (0.0-4.0); RED CELL DISTRIBUTION WIDTH 13.9 % (9.0-15.0)
[2016-08-01 06:53] LABS: BASOPHILS % (AUTO) 0.2 % (0.0-2.0); HEMATOCRIT 34.2 % (36-54); HEMOGLOBIN 11.4 g/dL (14.0-18.0); LYMPHOCYTES # (AUTO) 0.5 K/uL (1.0-5.5); LYMPHOCYTES % (AUTO) 5.4 % (20.5-51.5); MEAN CORPUSCULAR HEMOGLOBIN 30 pg (27-31); MEAN CORPUSCULAR HGB CONC 33 % (32-36); MEAN CORPUSCULAR VOLUME 90 fL (79.0-98.0); MONOCYTES # (AUTO) 0.6 K/uL (0.0-1.0); MONOCYTES % (AUTO) 6.8 % (1.7-9.3); NEUTROPHILS # (AUTO) 7.7 K/uL (1.8-7.7); NEUTROPHILS % (AUTO) 87.5 % (40.0-70.0); PLATELET COUNT (AUTO) 193 K/uL (130-430); RED BLOOD CELL COUNT(AUTO) 3.79 MIL/uL (4.2-6.2); WHITE BLOOD COUNT (AUTO) 8.8 K/uL (4.8-10.8)
[2016-08-01 07:09] LABS: ALANINE AMINOTRANSFERASE 123 U/L (12-78); ALBUMIN 2.1 g/dL (3.4-4.8); ANION GAP 6 (5-15); ASPARTATE AMINOTRANSFERASE 72 U/L (10-37); CALCIUM 9.7 mg/dL (8.4-11.0); CHLORIDE 96 mmol/L (98-107); CREATININE 0.78 mg/dL (0.55-1.30); GLUCOSE 181 mg/dL (70-99); POTASSIUM 3.4 mmol/L (3.5-5.1); SODIUM SERUM 135 mmol/L (136-145); UREA NITROGEN, BLOOD 20 mg/dL (8-21)
[2016-08-01 07:56] VITALS: BP_SYST 105
[2016-08-01 08:29] LABS: BLOOD O2Hb% 84.2 % (94.0-97.0)
[2016-08-01] MEDS ORDERED: IOHEXOL 100 ML IV ONE (08:45)
[2016-08-01] MEDS: LIDOCAINE PATCH 5% 1 EA TP SCH (09:00)
[2016-08-01] MEDS ORDERED: PANTOPRAZOLE SODIUM 40 MG TAB PO SCH (09:00)
[2016-08-01] MEDS: FOLIC ACID 1 MG TABLET PO SCH (10:38)
[2016-08-01] MEDS: FAMOTIDINE 20 MG TABLET PO SCH (10:38)
[2016-08-01] MEDS: DOCUSATE SODIUM 250 MG CAPSULE PO SCH ×2 (10:38→21:28)
[2016-08-01] MEDS: ENOXAPARIN SODIUM 30 MG/0.3 ML SYRINGE SUBCUT SCH (10:44)
[2016-08-01] MEDS: ASPIRIN 81 MG TABLET(ECOTRIN) PO SCH (10:44)
[2016-08-01] MEDS ORDERED: PREGABALIN 25 MG CAPSULE (LYRICA) PO SCH (10:47)
[2016-08-01] MEDS ORDERED: PREGABALIN 25 MG CAPSULE (LYRICA) PO ONE (11:00)
[2016-08-01 12:28] VITALS: BP_SYST 110
[2016-08-01 16:15] VITALS: BP_SYST 102
[2016-08-01] MEDS ORDERED: BALSAM PERU/CASTOR OIL 60 GM OINT...G. TP PRN (16:45)
[2016-08-01 20:00] VITALS: BP_SYST 126
[2016-08-01 21:15] LABS: BF APPEARANCE UNSPUN BLOODY (CLEAR); BODY FLUID SOURCE/ TYPE THORACENTESIS; SOURCE/TYPE ,BODY FLUID PLEURAL
[2016-08-01 21:16] LABS: APPEARANCE,SPUN,BODY FLUID CLOUDY (CLEAR); BODY FLUID COLOR RED (LT YELLOW)
[2016-08-01 21:17] LABS: BODY FLUID TOTAL VOLUME 1200 mL; LYMPHOCYTES, BODY FLUID 78 %; MONOCYTES,BODY FLUID 10 %; NEUTROPHIL, BODY FLUID 4 %; RBC, BODY FLUID 157778 /uL; WBC, BODY FLUID 2400 /uL
[2016-08-01 21:18] LABS: EOSINOPHIL, BODY FLUID 8 %
[2016-08-01] MEDS: PREGABALIN 25 MG CAPSULE (LYRICA) PO SCH (21:28)
[2016-08-01] MEDS: HYDROcodone/ACETAMIN 10-325 MG TAB PO PRN (22:00)
[2016-08-02] MEDS: PIPERACILLIN/TAZO 3.375/DEX-IS 50 ML IV SCH ×5 (00:12→23:37)
[2016-08-02] MEDS: IPRATROPIUM BROM 0.5 MG/2.5 ML VIAL.NEB (ATROVENT) INH SCH ×4 (00:53→19:34)
[2016-08-02] MEDS: LEVALBUTEROL HCL 0.63 MG/3 ML VIAL.NEB INH SCH ×4 (00:53→19:35)
[2016-08-02 01:19] VITALS: BP_SYST 112
[2016-08-02] MEDS: methylPREDNISolone SOD SUCC 40 MG/ML VIAL IVP SCH ×3 (05:28→21:05)
[2016-08-02] MEDS: NORMAL SALINE 5 ML DISP.SYRIN IVF SCH ×3 (05:29→21:05)
[2016-08-02 06:10] VITALS: BP_SYST 132
[2016-08-02 06:37] LABS: BASOPHILS % (AUTO) 0.3 % (0.0-2.0); HEMATOCRIT 34.6 % (36-54); HEMOGLOBIN 11.3 g/dL (14.0-18.0); LYMPHOCYTES # (AUTO) 0.7 K/uL (1.0-5.5); MEAN CORPUSCULAR HEMOGLOBIN 30 pg (27-31); MEAN CORPUSCULAR HGB CONC 33 % (32-36); MEAN CORPUSCULAR VOLUME 91 fL (79.0-98.0); MONOCYTES # (AUTO) 0.8 K/uL (0.0-1.0); MONOCYTES % (AUTO) 9.3 % (1.7-9.3); NEUTROPHILS # (AUTO) 7.6 K/uL (1.8-7.7); NEUTROPHILS % (AUTO) 82.4 % (40.0-70.0); PLATELET COUNT (AUTO) 223 K/uL (130-430); RED BLOOD CELL COUNT(AUTO) 3.81 MIL/uL (4.2-6.2); WHITE BLOOD COUNT (AUTO) 9.1 K/uL (4.8-10.8)
[2016-08-02] MEDS ORDERED: VANCOMYCIN HCL 1,250 MG in NS 250 ML IV ONE ×2 (07:00→09:00)
[2016-08-02 07:05] LABS: ALANINE AMINOTRANSFERASE 151 U/L (12-78); ALBUMIN 2.2 g/dL (3.4-4.8); ANION GAP 6 (5-15); ASPARTATE AMINOTRANSFERASE 89 U/L (10-37); CALCIUM 9.5 mg/dL (8.4-11.0); CHLORIDE 98 mmol/L (98-107); CREATININE 0.82 mg/dL (0.55-1.30); GLUCOSE 161 mg/dL (70-99); POTASSIUM 3.6 mmol/L (3.5-5.1); SODIUM SERUM 140 mmol/L (136-145); UREA NITROGEN, BLOOD 23 mg/dL (8-21)
[2016-08-02] MEDS: HYDROcodone/ACETAMIN 10-325 MG TAB PO PRN ×2 (07:22→21:07)
[2016-08-02 07:38] VITALS: BP_SYST 108
[2016-08-02] MEDS: VANCOMYCIN HCL 750 MG in NS 250 ML IV SCH ×2 (08:48→21:07)
[2016-08-02] MEDS: ASPIRIN 81 MG TABLET(ECOTRIN) PO SCH (08:53)
[2016-08-02] MEDS: FAMOTIDINE 20 MG TABLET PO SCH (08:53)
[2016-08-02] MEDS: LIDOCAINE PATCH 5% 1 EA TP SCH (08:53)
[2016-08-02] MEDS: PREGABALIN 25 MG CAPSULE (LYRICA) PO SCH ×2 (08:53→21:05)
[2016-08-02] MEDS: DOCUSATE SODIUM 250 MG CAPSULE PO SCH ×2 (08:53→21:05)
[2016-08-02] MEDS: ENOXAPARIN SODIUM 30 MG/0.3 ML SYRINGE SUBCUT SCH (08:54)
[2016-08-02] MEDS: FOLIC ACID 1 MG TABLET PO SCH (08:54)
[2016-08-02] MEDS ORDERED: POTASSIUM CHLORIDE 20 MEQ TAB.PRT.SR PO ONE (09:45)
[2016-08-02 12:08] VITALS: BP_SYST 124
[2016-08-02 12:23] LABS: BODY FLUID GLUCOSE 170 mg/dL; BODY FLUID TOTAL PROTEIN 2.6 g/dL
[2016-08-02 16:14] VITALS: BP_SYST 119
[2016-08-02] MEDS: BALSAM PERU/CASTOR OIL 60 GM OINT...G. TP SCH (17:13)
[2016-08-02 20:00] VITALS: BP_SYST 130
[2016-08-03] MEDS: LEVALBUTEROL HCL 0.63 MG/3 ML VIAL.NEB INH SCH ×2 (00:54→07:09)
[2016-08-03] MEDS: IPRATROPIUM BROM 0.5 MG/2.5 ML VIAL.NEB (ATROVENT) INH SCH ×6 (00:54→23:46)
[2016-08-03 01:31] VITALS: BP_SYST 124
[2016-08-03] MEDS: methylPREDNISolone SOD SUCC 40 MG/ML VIAL IVP SCH ×3 (05:41→21:25)
[2016-08-03] MEDS: NORMAL SALINE 5 ML DISP.SYRIN IVF SCH ×3 (05:41→21:26)
[2016-08-03] MEDS: PIPERACILLIN/TAZO 3.375/DEX-IS 50 ML IV SCH ×3 (05:41→17:07)
[2016-08-03] MEDS: HYDROcodone/ACETAMIN 10-325 MG TAB PO PRN ×3 (06:03→22:09)
[2016-08-03 07:36] LABS: BASOPHILS # (AUTO) 0.1 K/uL (0.0-0.2); BASOPHILS % (AUTO) 1.1 % (0.0-2.0); EOSINOPHILS % (AUTO) 0.2 % (0.0-4.0); HEMATOCRIT 35.2 % (36-54); HEMOGLOBIN 11.5 g/dL (14.0-18.0); MEAN CORPUSCULAR HEMOGLOBIN 30 pg (27-31); MEAN CORPUSCULAR HGB CONC 33 % (32-36); MEAN CORPUSCULAR VOLUME 91 fL (79.0-98.0); MONOCYTES # (AUTO) 0.9 K/uL (0.0-1.0); MONOCYTES % (AUTO) 10.2 % (1.7-9.3); NEUTROPHILS # (AUTO) 7.3 K/uL (1.8-7.7); NEUTROPHILS % (AUTO) 77.5 % (40.0-70.0); PLATELET COUNT (AUTO) 216 K/uL (130-430); RED BLOOD CELL COUNT(AUTO) 3.88 MIL/uL (4.2-6.2); RED CELL DISTRIBUTION WIDTH 14.1 % (9.0-15.0); WHITE BLOOD COUNT (AUTO) 9.3 K/uL (4.8-10.8)
[2016-08-03 07:54] LABS: ANION GAP 2 (5-15); CALCIUM 9.4 mg/dL (8.4-11.0); CHLORIDE 99 mmol/L (98-107); CREATININE 0.79 mg/dL (0.55-1.30); GLUCOSE 146 mg/dL (70-99); POTASSIUM 4.4 mmol/L (3.5-5.1); SODIUM SERUM 137 mmol/L (136-145); UREA NITROGEN, BLOOD 23 mg/dL (8-21)
[2016-08-03 08:00] VITALS: BP_SYST 109
[2016-08-03] MEDS: VANCOMYCIN HCL 750 MG in NS 250 ML IV SCH ×2 (08:33→21:25)
[2016-08-03] MEDS: DOCUSATE SODIUM 250 MG CAPSULE PO SCH ×2 (08:33→22:06)
[2016-08-03] MEDS: ENOXAPARIN SODIUM 30 MG/0.3 ML SYRINGE SUBCUT SCH (08:33)
[2016-08-03] MEDS: ASPIRIN 81 MG TABLET(ECOTRIN) PO SCH (08:33)
[2016-08-03] MEDS: FAMOTIDINE 20 MG TABLET PO SCH (08:33)
[2016-08-03] MEDS: FOLIC ACID 1 MG TABLET PO SCH (08:33)
[2016-08-03] MEDS: PREGABALIN 25 MG CAPSULE (LYRICA) PO SCH ×2 (08:33→22:06)
[2016-08-03] MEDS: LIDOCAINE PATCH 5% 1 EA TP SCH (08:34)
[2016-08-03] MEDS: BALSAM PERU/CASTOR OIL 60 GM OINT...G. TP SCH (09:00)
[2016-08-03] MEDS: ALBUTEROL SULFATE 0.083% 2.5 MG/3 ML VIAL.NEB INH SCH ×4 (11:31→23:46)
[2016-08-03 12:00] VITALS: BP_SYST 101
[2016-08-03 16:00] VITALS: BP_SYST 103
[2016-08-03 17:57] VITALS: BP_SYST 101
[2016-08-03 20:45] VITALS: BP_SYST 108
[2016-08-04] MEDS: PIPERACILLIN/TAZO 3.375/DEX-IS 50 ML IV SCH ×4 (00:07→17:19)
[2016-08-04 00:16] VITALS: BP_SYST 131
[2016-08-04] MEDS: IPRATROPIUM BROM 0.5 MG/2.5 ML VIAL.NEB (ATROVENT) INH SCH ×6 (03:00→23:10)
[2016-08-04] MEDS: ALBUTEROL SULFATE 0.083% 2.5 MG/3 ML VIAL.NEB INH SCH ×6 (03:00→23:10)
[2016-08-04] MEDS: ALPRAZolam 0.25 MG TABLET PO PRN (04:48)
[2016-08-04] MEDS: methylPREDNISolone SOD SUCC 40 MG/ML VIAL IVP SCH ×3 (05:37→21:47)
[2016-08-04] MEDS: NORMAL SALINE 5 ML DISP.SYRIN IVF SCH ×3 (05:38→21:48)
[2016-08-04 07:29] LABS: ABG TOTAL HEMOGLOBIN 12.3 G/dL (12.0-18.0); BLOOD GAS BASE EXCESS 6.5 mmol/L (-3.0-3.0); BLOOD GAS COHb% 0.2 % (0.5-1.5); BLOOD GAS HHB 10.8 % (0.0-6.0); BLOOD O2Hb% 88.6 % (94.0-97.0)
[2016-08-04 07:37] LABS: BASOPHILS % (AUTO) 0.1 % (0.0-2.0); EOSINOPHILS % (AUTO) 0.3 % (0.0-4.0); HEMATOCRIT 33.3 % (36-54); HEMOGLOBIN 10.8 g/dL (14.0-18.0); LYMPHOCYTES # (AUTO) 0.9 K/uL (1.0-5.5); LYMPHOCYTES % (AUTO) 9.4 % (20.5-51.5); MEAN CORPUSCULAR HEMOGLOBIN 30 pg (27-31); MEAN CORPUSCULAR HGB CONC 33 % (32-36); MEAN CORPUSCULAR VOLUME 91 fL (79.0-98.0); MONOCYTES # (AUTO) 0.5 K/uL (0.0-1.0); MONOCYTES % (AUTO) 5.6 % (1.7-9.3); NEUTROPHILS # (AUTO) 7.8 K/uL (1.8-7.7); NEUTROPHILS % (AUTO) 84.6 % (40.0-70.0); PLATELET COUNT (AUTO) 210 K/uL (130-430); RED BLOOD CELL COUNT(AUTO) 3.66 MIL/uL (4.2-6.2); RED CELL DISTRIBUTION WIDTH 14.1 % (9.0-15.0); WHITE BLOOD COUNT (AUTO) 9.3 K/uL (4.8-10.8)
[2016-08-04 08:03] LABS: ANION GAP 2 (5-15); CALCIUM 8.7 mg/dL (8.4-11.0); CHLORIDE 100 mmol/L (98-107); CREATININE 0.71 mg/dL (0.55-1.30); GLUCOSE 127 mg/dL (70-99); POTASSIUM 3.3 mmol/L (3.5-5.1); SODIUM SERUM 138 mmol/L (136-145); UREA NITROGEN, BLOOD 18 mg/dL (8-21); VANCOMYCIN,TROUGH 14.8 ug/mL (5.0-10.0)
[2016-08-04 08:07] VITALS: BP_SYST 132
[2016-08-04] MEDS: FAMOTIDINE 20 MG TABLET PO SCH (08:22)
[2016-08-04] MEDS: ASPIRIN 81 MG TABLET(ECOTRIN) PO SCH (08:22)
[2016-08-04] MEDS: DOCUSATE SODIUM 250 MG CAPSULE PO SCH ×2 (08:22→21:47)
[2016-08-04] MEDS: FOLIC ACID 1 MG TABLET PO SCH (08:22)
[2016-08-04] MEDS: PREGABALIN 25 MG CAPSULE (LYRICA) PO SCH ×2 (08:22→21:47)
[2016-08-04] MEDS: LIDOCAINE PATCH 5% 1 EA TP SCH (08:22)
[2016-08-04] MEDS: ENOXAPARIN SODIUM 30 MG/0.3 ML SYRINGE SUBCUT SCH (08:23)
[2016-08-04] MEDS: VANCOMYCIN HCL 750 MG in NS 250 ML IV SCH ×2 (08:23→21:47)
[2016-08-04] MEDS: HYDROcodone/ACETAMIN 10-325 MG TAB PO PRN (08:25)
[2016-08-04] MEDS ORDERED: POTASSIUM CHLORIDE 20 MEQ TAB.PRT.SR PO ONE (08:45)
[2016-08-04] MEDS ORDERED: POTASSIUM CHLORIDE 40 MEQ, MAGNESIUM SULFATE 4 GM in 0.45% NS 250 ML IV ONE (08:45)
[2016-08-04] MEDS: BALSAM PERU/CASTOR OIL 60 GM OINT...G. TP SCH (09:00)
[2016-08-04 12:00] VITALS: BP_SYST 121
[2016-08-04 16:00] VITALS: BP_SYST 102
[2016-08-04 21:56] VITALS: BP_SYST 109
[2016-08-05] VITALS: BP_SYST 138
[2016-08-05] MEDS: PIPERACILLIN/TAZO 3.375/DEX-IS 50 ML IV SCH ×5 (00:33→23:39)
[2016-08-05] MEDS: ALBUTEROL SULFATE 0.083% 2.5 MG/3 ML VIAL.NEB INH SCH ×6 (03:44→23:57)
[2016-08-05] MEDS: IPRATROPIUM BROM 0.5 MG/2.5 ML VIAL.NEB (ATROVENT) INH SCH ×6 (03:45→23:57)
[2016-08-05 04:26] VITALS: BP_SYST 140
[2016-08-05] MEDS: methylPREDNISolone SOD SUCC 40 MG/ML VIAL IVP SCH ×3 (05:30→21:53)
[2016-08-05] MEDS: NORMAL SALINE 5 ML DISP.SYRIN IVF SCH ×3 (05:31→21:54)
[2016-08-05 06:49] LABS: BASOPHILS # (AUTO) 0.1 K/uL (0.0-0.2); BASOPHILS % (AUTO) 0.6 % (0.0-2.0); EOSINOPHILS % (AUTO) 0.1 % (0.0-4.0); HEMATOCRIT 34.8 % (36-54); HEMOGLOBIN 11.4 g/dL (14.0-18.0); LYMPHOCYTES # (AUTO) 0.7 K/uL (1.0-5.5); MEAN CORPUSCULAR HEMOGLOBIN 30 pg (27-31); MEAN CORPUSCULAR HGB CONC 33 % (32-36); MEAN CORPUSCULAR VOLUME 91 fL (79.0-98.0); MONOCYTES # (AUTO) 0.8 K/uL (0.0-1.0); MONOCYTES % (AUTO) 6.8 % (1.7-9.3); NEUTROPHILS # (AUTO) 10.4 K/uL (1.8-7.7); NEUTROPHILS % (AUTO) 86.5 % (40.0-70.0); PLATELET COUNT (AUTO) 229 K/uL (130-430); RED BLOOD CELL COUNT(AUTO) 3.82 MIL/uL (4.2-6.2); RED CELL DISTRIBUTION WIDTH 14.2 % (9.0-15.0)
[2016-08-05 07:06] LABS: ALANINE AMINOTRANSFERASE 105 U/L (12-78); ALBUMIN 2.1 g/dL (3.4-4.8); ANION GAP 4 (5-15); ASPARTATE AMINOTRANSFERASE 32 U/L (10-37); CALCIUM 8.6 mg/dL (8.4-11.0); CHLORIDE 100 mmol/L (98-107); CREATININE 0.67 mg/dL (0.55-1.30); GLUCOSE 154 mg/dL (70-99); POTASSIUM 4.6 mmol/L (3.5-5.1); SODIUM SERUM 137 mmol/L (136-145); TOTAL BILIRUBIN 0.9 mg/dL (0.0-1.0); TOTAL PROTEIN, SERUM 5.6 g/dL (6.4-8.3); UREA NITROGEN, BLOOD 16 mg/dL (8-21)
[2016-08-05 07:56] VITALS: BP_SYST 137
[2016-08-05] MEDS: LIDOCAINE PATCH 5% 1 EA TP SCH (09:00)
[2016-08-05] MEDS: ASPIRIN 81 MG TABLET(ECOTRIN) PO SCH (09:00)
[2016-08-05] MEDS: PREGABALIN 25 MG CAPSULE (LYRICA) PO SCH ×2 (09:00→21:52)
[2016-08-05] MEDS: FOLIC ACID 1 MG TABLET PO SCH (09:00)
[2016-08-05] MEDS: DOCUSATE SODIUM 250 MG CAPSULE PO SCH ×2 (09:00→21:52)
[2016-08-05] MEDS: BALSAM PERU/CASTOR OIL 60 GM OINT...G. TP SCH (09:00)
[2016-08-05] MEDS: ENOXAPARIN SODIUM 30 MG/0.3 ML SYRINGE SUBCUT SCH (09:00)
[2016-08-05] MEDS: FAMOTIDINE 20 MG TABLET PO SCH (09:00)
[2016-08-05] MEDS: VANCOMYCIN HCL 750 MG in NS 250 ML IV SCH ×2 (09:25→21:52)
[2016-08-05 12:00] VITALS: BP_SYST 133
[2016-08-05 18:25] VITALS: BP_SYST 130
[2016-08-05 19:30] VITALS: BP_SYST 134
[2016-08-05] MEDS: HYDROcodone/ACETAMIN 10-325 MG TAB PO PRN (21:55)
[2016-08-06] VITALS (8 sets, daily range): BP systolic 102–157
[2016-08-06] MEDS: ALBUTEROL SULFATE 0.083% 2.5 MG/3 ML VIAL.NEB INH SCH ×6 (03:32→22:06)
[2016-08-06] MEDS: IPRATROPIUM BROM 0.5 MG/2.5 ML VIAL.NEB (ATROVENT) INH SCH ×6 (03:32→22:06)
[2016-08-06] MEDS: PIPERACILLIN/TAZO 3.375/DEX-IS 50 ML IV SCH ×4 (05:09→23:56)
[2016-08-06] MEDS: methylPREDNISolone SOD SUCC 40 MG/ML VIAL IVP SCH ×3 (05:09→22:34)
[2016-08-06] MEDS: NORMAL SALINE 5 ML DISP.SYRIN IVF SCH ×3 (05:17→20:57)
[2016-08-06] MEDS: ASPIRIN 81 MG TABLET(ECOTRIN) PO SCH (09:00)
[2016-08-06] MEDS: DOCUSATE SODIUM 250 MG CAPSULE PO SCH ×2 (09:00→20:53)
[2016-08-06] MEDS: FOLIC ACID 1 MG TABLET PO SCH (09:00)
[2016-08-06] MEDS: FAMOTIDINE 20 MG TABLET PO SCH (09:00)
[2016-08-06] MEDS: ENOXAPARIN SODIUM 30 MG/0.3 ML SYRINGE SUBCUT SCH (09:00)
[2016-08-06] MEDS: BALSAM PERU/CASTOR OIL 60 GM OINT...G. TP SCH (09:00)
[2016-08-06] MEDS: PREGABALIN 25 MG CAPSULE (LYRICA) PO SCH ×2 (09:00→20:56)
[2016-08-06] MEDS: LIDOCAINE PATCH 5% 1 EA TP SCH (09:47)
[2016-08-06] MEDS: VANCOMYCIN HCL 750 MG in NS 250 ML IV SCH ×2 (10:33→21:25)
[2016-08-06] MEDS: MORPHINE 2 MG/ML INJ. SYRINGE IVP PRN (12:26)
[2016-08-06] MEDS ORDERED: MIDAZOLAM HCL 5 MG/5 ML VIAL IVP ONE (17:30)
[2016-08-06] MEDS ORDERED: BUPIVACAINE /EPINEPHRINE/PF 0.25% 30 ML VIAL INJ ONE (17:30)
[2016-08-06] MEDS ORDERED: LR 1,000 ML IV.SOLN IV ONE (17:30)
[2016-08-06] MEDS ORDERED: LR 1,000 ML IV SCH (17:31)
[2016-08-06] MEDS ORDERED: HYDROmorphone 2 MG/ML VIAL IVP PRN ×2 (17:45)
[2016-08-06] MEDS ORDERED: MEPERIDINE HCL/PF 25 MG/ML DISP.SYRIN IVP PRN (17:45)
[2016-08-06] MEDS ORDERED: HYDROmorphone 1 MG INJ. 1 MG/ML AMPUL IVP PRN (17:45)
[2016-08-06] MEDS: HYDROcodone/ACETAMIN 10-325 MG TAB PO PRN (22:52)
[2016-08-07 00:42] VITALS: BP_SYST 150
[2016-08-07] MEDS: ALPRAZolam 0.25 MG TABLET PO PRN ×2 (01:53→20:59)
[2016-08-07 04:26] VITALS: BP_SYST 111
[2016-08-07] MEDS: IPRATROPIUM BROM 0.5 MG/2.5 ML VIAL.NEB (ATROVENT) INH SCH ×6 (04:40→23:48)
[2016-08-07] MEDS: ALBUTEROL SULFATE 0.083% 2.5 MG/3 ML VIAL.NEB INH SCH ×6 (04:40→23:48)
[2016-08-07] MEDS: PIPERACILLIN/TAZO 3.375/DEX-IS 50 ML IV SCH ×4 (05:04→23:57)
[2016-08-07] MEDS: NORMAL SALINE 5 ML DISP.SYRIN IVF SCH ×3 (05:05→21:18)
[2016-08-07] MEDS: methylPREDNISolone SOD SUCC 40 MG/ML VIAL IVP SCH ×3 (05:06→21:19)
[2016-08-07 06:34] LABS: BASOPHILS % (AUTO) 0.4 % (0.0-2.0); HEMATOCRIT 35.7 % (36-54); HEMOGLOBIN 12.1 g/dL (14.0-18.0); LYMPHOCYTES # (AUTO) 0.6 K/uL (1.0-5.5); LYMPHOCYTES % (AUTO) 5.2 % (20.5-51.5); MEAN CORPUSCULAR HEMOGLOBIN 30 pg (27-31); MEAN CORPUSCULAR HGB CONC 34 % (32-36); MEAN CORPUSCULAR VOLUME 90 fL (79.0-98.0); MONOCYTES # (AUTO) 0.7 K/uL (0.0-1.0); MONOCYTES % (AUTO) 5.7 % (1.7-9.3); NEUTROPHILS # (AUTO) 10.4 K/uL (1.8-7.7); PLATELET COUNT (AUTO) 215 K/uL (130-430); RED BLOOD CELL COUNT(AUTO) 3.98 MIL/uL (4.2-6.2); RED CELL DISTRIBUTION WIDTH 14.5 % (9.0-15.0); WHITE BLOOD COUNT (AUTO) 11.7 K/uL (4.8-10.8)
[2016-08-07 06:55] LABS: ANION GAP 8 (5-15); CALCIUM 9.2 mg/dL (8.4-11.0); CHLORIDE 101 mmol/L (98-107); CREATININE 0.67 mg/dL (0.55-1.30); GLUCOSE 139 mg/dL (70-99); POTASSIUM 4.1 mmol/L (3.5-5.1); SODIUM SERUM 139 mmol/L (136-145); UREA NITROGEN, BLOOD 15 mg/dL (8-21)
[2016-08-07 07:04] LABS: ALANINE AMINOTRANSFERASE 84 U/L (12-78); ALBUMIN 2.2 g/dL (3.4-4.8); ASPARTATE AMINOTRANSFERASE 24 U/L (10-37); TOTAL BILIRUBIN 1.6 mg/dL (0.0-1.0); TOTAL PROTEIN, SERUM 5.5 g/dL (6.4-8.3)
[2016-08-07 08:00] VITALS: BP_SYST 126
[2016-08-07] MEDS: FAMOTIDINE 20 MG TABLET PO SCH (08:37)
[2016-08-07] MEDS: FOLIC ACID 1 MG TABLET PO SCH (08:37)
[2016-08-07] MEDS: DOCUSATE SODIUM 250 MG CAPSULE PO SCH ×2 (08:38→20:59)
[2016-08-07] MEDS: PREGABALIN 25 MG CAPSULE (LYRICA) PO SCH ×2 (08:38→20:59)
[2016-08-07] MEDS: ENOXAPARIN SODIUM 30 MG/0.3 ML SYRINGE SUBCUT SCH (08:38)
[2016-08-07] MEDS: ASPIRIN 81 MG TABLET(ECOTRIN) PO SCH (08:38)
[2016-08-07] MEDS: BALSAM PERU/CASTOR OIL 60 GM OINT...G. TP SCH (08:39)
[2016-08-07] MEDS: LIDOCAINE PATCH 5% 1 EA TP SCH (08:39)
[2016-08-07 09:34] LABS: NEUTROPHILS % (AUTO) 88.7 % (40.0-70.0)
[2016-08-07] MEDS: VANCOMYCIN HCL 750 MG in NS 250 ML IV SCH ×2 (09:57→20:59)
[2016-08-07] MEDS ORDERED: guaiFENesin ER 600 MG TAB PO ONE (11:00)
[2016-08-07 12:07] VITALS: BP_SYST 92
[2016-08-07 16:48] VITALS: BP_SYST 116
[2016-08-07 19:50] VITALS: BP_SYST 140
[2016-08-07] MEDS: guaiFENesin ER 600 MG TAB PO SCH (21:00)
[2016-08-08 00:50] VITALS: BP_SYST 129
[2016-08-08] MEDS: IPRATROPIUM BROM 0.5 MG/2.5 ML VIAL.NEB (ATROVENT) INH SCH ×6 (03:37→23:51)
[2016-08-08] MEDS: ALBUTEROL SULFATE 0.083% 2.5 MG/3 ML VIAL.NEB INH SCH ×6 (03:37→23:51)
[2016-08-08 03:42] VITALS: BP_SYST 139
[2016-08-08] MEDS: methylPREDNISolone SOD SUCC 40 MG/ML VIAL IVP SCH ×3 (05:09→21:45)
[2016-08-08] MEDS: NORMAL SALINE 5 ML DISP.SYRIN IVF SCH ×3 (05:10→21:45)
[2016-08-08] MEDS: PIPERACILLIN/TAZO 3.375/DEX-IS 50 ML IV SCH ×2 (05:10→12:30)
[2016-08-08 06:26] LABS: BASOPHILS % (AUTO) 0.3 % (0.0-2.0); EOSINOPHILS % (AUTO) 0.1 % (0.0-4.0); HEMATOCRIT 36.2 % (36-54); HEMOGLOBIN 11.9 g/dL (14.0-18.0); LYMPHOCYTES # (AUTO) 0.4 K/uL (1.0-5.5); LYMPHOCYTES % (AUTO) 4.5 % (20.5-51.5); MEAN CORPUSCULAR HEMOGLOBIN 30 pg (27-31); MEAN CORPUSCULAR HGB CONC 33 % (32-36); MEAN CORPUSCULAR VOLUME 90 fL (79.0-98.0); MONOCYTES # (AUTO) 0.7 K/uL (0.0-1.0); MONOCYTES % (AUTO) 6.9 % (1.7-9.3); NEUTROPHILS # (AUTO) 8.6 K/uL (1.8-7.7); NEUTROPHILS % (AUTO) 88.2 % (40.0-70.0); PLATELET COUNT (AUTO) 211 K/uL (130-430); RED BLOOD CELL COUNT(AUTO) 4.01 MIL/uL (4.2-6.2); RED CELL DISTRIBUTION WIDTH 14.9 % (9.0-15.0); WHITE BLOOD COUNT (AUTO) 9.7 K/uL (4.8-10.8)
[2016-08-08 06:38] LABS: ANION GAP 3 (5-15); CALCIUM 9.1 mg/dL (8.4-11.0); CHLORIDE 101 mmol/L (98-107); CREATININE 0.79 mg/dL (0.55-1.30); GLUCOSE 196 mg/dL (70-99); POTASSIUM 3.7 mmol/L (3.5-5.1); SODIUM SERUM 138 mmol/L (136-145); UREA NITROGEN, BLOOD 15 mg/dL (8-21)
[2016-08-08] MEDS: FAMOTIDINE 20 MG TABLET PO SCH (07:58)
[2016-08-08] MEDS: DOCUSATE SODIUM 250 MG CAPSULE PO SCH ×2 (07:58→21:44)
[2016-08-08] MEDS: ASPIRIN 81 MG TABLET(ECOTRIN) PO SCH (07:58)
[2016-08-08] MEDS: PREGABALIN 25 MG CAPSULE (LYRICA) PO SCH ×2 (07:59→21:44)
[2016-08-08] MEDS: guaiFENesin ER 600 MG TAB PO SCH ×2 (07:59→21:44)
[2016-08-08] MEDS: ENOXAPARIN SODIUM 30 MG/0.3 ML SYRINGE SUBCUT SCH (08:00)
[2016-08-08] MEDS: FOLIC ACID 1 MG TABLET PO SCH (08:00)
[2016-08-08 08:12] VITALS: BP_SYST 125
[2016-08-08] MEDS: BALSAM PERU/CASTOR OIL 60 GM OINT...G. TP SCH (09:00)
[2016-08-08] MEDS: VANCOMYCIN HCL 750 MG in NS 250 ML IV SCH (10:17)
[2016-08-08] MEDS: LIDOCAINE PATCH 5% 1 EA TP SCH (10:17)
[2016-08-08 12:06] VITALS: BP_SYST 112
[2016-08-08 16:16] VITALS: BP_SYST 129
[2016-08-08 20:00] VITALS: BP_SYST 125
[2016-08-08] MEDS: ALPRAZolam 0.25 MG TABLET PO PRN (21:44)
[2016-08-09] VITALS (11 sets, daily range): BP systolic 95–135
[2016-08-09] MEDS: ALBUTEROL SULFATE 0.083% 2.5 MG/3 ML VIAL.NEB INH SCH ×7 (03:00→23:44)
[2016-08-09] MEDS: IPRATROPIUM BROM 0.5 MG/2.5 ML VIAL.NEB (ATROVENT) INH SCH ×7 (03:00→23:44)
[2016-08-09] MEDS: methylPREDNISolone SOD SUCC 40 MG/ML VIAL IVP SCH ×3 (05:52→21:03)
[2016-08-09] MEDS: NORMAL SALINE 5 ML DISP.SYRIN IVF SCH ×3 (05:53→21:04)
[2016-08-09 08:27] LABS: ANION GAP 3 (5-15); CALCIUM 8.5 mg/dL (8.4-11.0); CHLORIDE 100 mmol/L (98-107); CREATININE 0.65 mg/dL (0.55-1.30); GLUCOSE 142 mg/dL (70-99); POTASSIUM 3.7 mmol/L (3.5-5.1); SODIUM SERUM 135 mmol/L (136-145); UREA NITROGEN, BLOOD 19 mg/dL (8-21)
[2016-08-09 08:31] LABS: BASOPHILS # (AUTO) 0.3 K/uL (0.0-0.2); BASOPHILS % (AUTO) 1.9 % (0.0-2.0); EOSINOPHILS % (AUTO) 0.1 % (0.0-4.0); HEMATOCRIT 35.8 % (36-54); HEMOGLOBIN 12.1 g/dL (14.0-18.0); LYMPHOCYTES # (AUTO) 0.4 K/uL (1.0-5.5); LYMPHOCYTES % (AUTO) 3.2 % (20.5-51.5); MEAN CORPUSCULAR HEMOGLOBIN 30 pg (27-31); MEAN CORPUSCULAR HGB CONC 34 % (32-36); MEAN CORPUSCULAR VOLUME 89 fL (79.0-98.0); MONOCYTES # (AUTO) 0.7 K/uL (0.0-1.0); MONOCYTES % (AUTO) 5.5 % (1.7-9.3); NEUTROPHILS # (AUTO) 11.9 K/uL (1.8-7.7); NEUTROPHILS % (AUTO) 89.3 % (40.0-70.0); PLATELET COUNT (AUTO) 223 K/uL (130-430); RED BLOOD CELL COUNT(AUTO) 4.01 MIL/uL (4.2-6.2); RED CELL DISTRIBUTION WIDTH 15.1 % (9.0-15.0)
[2016-08-09 08:33] LABS: WHITE BLOOD COUNT (AUTO) 13.3 K/uL (4.8-10.8)
[2016-08-09] MEDS: LIDOCAINE PATCH 5% 1 EA TP SCH (09:00)
[2016-08-09] MEDS: ASPIRIN 81 MG TABLET(ECOTRIN) PO SCH (09:00)
[2016-08-09] MEDS: DOCUSATE SODIUM 250 MG CAPSULE PO SCH ×2 (09:00→21:00)
[2016-08-09] MEDS: ENOXAPARIN SODIUM 30 MG/0.3 ML SYRINGE SUBCUT SCH (09:00)
[2016-08-09] MEDS: guaiFENesin ER 600 MG TAB PO SCH ×2 (09:00→21:00)
[2016-08-09] MEDS: FAMOTIDINE 20 MG TABLET PO SCH (09:00)
[2016-08-09] MEDS: FOLIC ACID 1 MG TABLET PO SCH (09:00)
[2016-08-09] MEDS: BALSAM PERU/CASTOR OIL 60 GM OINT...G. TP SCH (10:04)
[2016-08-09] MEDS ORDERED: KETAMINE HCL 500 MG/10 ML VIAL ONE (14:55)
[2016-08-09] MEDS ORDERED: GLYCOPYRROLATE 0.2 MG/ML VIAL IJ ONE (15:46)
[2016-08-09] MEDS ORDERED: ROCURONIUM BROMIDE 10 MG/ML (ZEMURON) IV ONE (15:46)
[2016-08-09] MEDS ORDERED: METOCLOPRAMIDE HCL 10 MG/2 ML VIAL IVP ONE (15:46)
[2016-08-09] MEDS ORDERED: METOPROLOL TARTRATE 5 MG/5 ML VIAL IVP ONE ×2 (15:46→18:15)
[2016-08-09] MEDS ORDERED: MIDAZOLAM HCL 5 MG/5 ML VIAL IVP ONE (15:46)
[2016-08-09] MEDS ORDERED: fentaNYL CITRATE/PF 100 MCG/2 ML AMP IVP ONE (15:46)
[2016-08-09] MEDS ORDERED: KETAMINE HCL 500 MG/10 ML VIAL IVP ONE (15:46)
[2016-08-09] MEDS ORDERED: HEPARIN SODIUM,PORCINE/NS/PF 1,000 UNITS/500 ML BAG IV ONE (15:46)
[2016-08-09] MEDS ORDERED: NS IRRIG SOLN 1000 ML IR ONE (15:46)
[2016-08-09] MEDS ORDERED: BUPIVACAINE /EPINEPHRINE/PF 0.25% 30 ML VIAL INJ ONE (15:46)
[2016-08-09] MEDS ORDERED: CEFAZOLIN 2 GM IVPB PREMIX 50 ML IV ONE (15:46)
[2016-08-09] MEDS ORDERED: LR 1,000 ML IV.SOLN IV ONE (15:46)
[2016-08-09] MEDS ORDERED: SEVOFLURANE 15 MIN GAS INH ONE (15:46)
[2016-08-09 16:29] LABS: BF APPEARANCE UNSPUN CLOUDY (CLEAR); BODY FLUID COLOR PINK (LT YELLOW); BODY FLUID SOURCE/ TYPE THORACENTESIS; SOURCE/TYPE ,BODY FLUID PLEURAL
[2016-08-09 16:30] LABS: BODY FLUID TOTAL VOLUME 1450 mL; LYMPHOCYTES, BODY FLUID 88 %; NEUTROPHIL, BODY FLUID 9 %; RBC, BODY FLUID 12844 /uL; WBC, BODY FLUID 1400 /uL
[2016-08-09 16:31] LABS: MONOCYTES,BODY FLUID 3 %
[2016-08-09 16:42] LABS: ABG TOTAL HEMOGLOBIN 12.7 G/dL (12.0-18.0); BLOOD GAS BASE EXCESS 3.9 mmol/L (-3.0-3.0); BLOOD GAS COHb% 0.3 % (0.5-1.5); BLOOD GAS HHB 0.9 % (0.0-6.0); BLOOD GAS PH 7.466 (7.350-7.450); BLOOD O2Hb% 98.5 % (94.0-97.0)
[2016-08-09] MEDS ORDERED: LR 1,000 ML IV ONE (17:25)
[2016-08-09] MEDS ORDERED: NALOXONE HCL 0.4 MG/ML AMP (NARCAN) IVP PRN (17:30)
[2016-08-09] MEDS ORDERED: fentaNYL CITRATE/PF 100 MCG/2 ML AMP IVP PRN (17:30)
[2016-08-09] MEDS ORDERED: ePHEDrine sulfate 50 MG/ML VIAL IVP PRN (17:30)
[2016-08-09] MEDS ORDERED: ONDANSETRON HCL 4 MG/2 ML VIAL IVP PRN ×2 (17:30)
[2016-08-09] MEDS ORDERED: NALBUPHINE HCL 10 MG/ML AMP IVP PRN (17:30)
[2016-08-09] MEDS ORDERED: DIPHENHYDRAMINE INJ 50 MG/ML VIAL IVP PRN (17:30)
[2016-08-09] MEDS: MORPHINE 2 MG/ML INJ. SYRINGE IVP PRN (18:05)
[2016-08-09] MEDS ORDERED: MIDAZOLAM HCL 2 MG/2 ML VIAL (VERSED) ONE (18:10)
[2016-08-09] MEDS ORDERED: MORPHINE 4 MG/ML INJ. SYRINGE ONE (18:11)
[2016-08-09 18:19] LABS: BLOOD GAS PH 7.417 (7.350-7.450)
[2016-08-09 18:20] LABS: ABG TOTAL HEMOGLOBIN 13.4 G/dL (12.0-18.0); BLOOD GAS BASE EXCESS 1.4 mmol/L (-3.0-3.0); BLOOD GAS COHb% 0.4 % (0.5-1.5); BLOOD GAS HHB 4.6 % (0.0-6.0); BLOOD O2Hb% 94.7 % (94.0-97.0)
[2016-08-09] MEDS: PREGABALIN 25 MG CAPSULE (LYRICA) PO SCH (21:00)
[2016-08-10] VITALS (14 sets, daily range): BP systolic 91–131
[2016-08-10] MEDS: ALBUTEROL SULFATE 0.083% 2.5 MG/3 ML VIAL.NEB INH SCH ×6 (04:04→23:06)
[2016-08-10] MEDS: IPRATROPIUM BROM 0.5 MG/2.5 ML VIAL.NEB (ATROVENT) INH SCH ×6 (04:04→23:06)
[2016-08-10] MEDS: NACL 0.9% 1,000 ML IV SCH ×3 (05:15→13:19)
[2016-08-10] MEDS: NORMAL SALINE 5 ML DISP.SYRIN IVF SCH ×3 (05:16→21:47)
[2016-08-10] MEDS: methylPREDNISolone SOD SUCC 40 MG/ML VIAL IVP SCH ×3 (05:17→21:46)
[2016-08-10 07:41] LABS: BASOPHILS % (AUTO) 0.1 % (0.0-2.0); EOSINOPHILS % (AUTO) 0.1 % (0.0-4.0); HEMATOCRIT 36.5 % (36-54); HEMOGLOBIN 12.2 g/dL (14.0-18.0); LYMPHOCYTES # (AUTO) 0.4 K/uL (1.0-5.5); LYMPHOCYTES % (AUTO) 2.4 % (20.5-51.5); MEAN CORPUSCULAR HEMOGLOBIN 30 pg (27-31); MEAN CORPUSCULAR HGB CONC 33 % (32-36); MEAN CORPUSCULAR VOLUME 91 fL (79.0-98.0); MONOCYTES # (AUTO) 0.3 K/uL (0.0-1.0); MONOCYTES % (AUTO) 1.9 % (1.7-9.3); NEUTROPHILS # (AUTO) 16.1 K/uL (1.8-7.7); PLATELET COUNT (AUTO) 209 K/uL (130-430); RED BLOOD CELL COUNT(AUTO) 4.04 MIL/uL (4.2-6.2); RED CELL DISTRIBUTION WIDTH 15.3 % (9.0-15.0); WHITE BLOOD COUNT (AUTO) 16.9 K/uL (4.8-10.8)
[2016-08-10 07:45] LABS: ALANINE AMINOTRANSFERASE 48 U/L (12-78); ANION GAP 3 (5-15); ASPARTATE AMINOTRANSFERASE 24 U/L (10-37); CALCIUM 8.2 mg/dL (8.4-11.0); CHLORIDE 101 mmol/L (98-107); CREATININE 0.76 mg/dL (0.55-1.30); GLUCOSE 149 mg/dL (70-99); POTASSIUM 4.1 mmol/L (3.5-5.1); SODIUM SERUM 135 mmol/L (136-145); TOTAL BILIRUBIN 1.8 mg/dL (0.0-1.0); TOTAL PROTEIN, SERUM 5.2 g/dL (6.4-8.3); UREA NITROGEN, BLOOD 19 mg/dL (8-21)
[2016-08-10] MEDS: ASPIRIN 81 MG TABLET(ECOTRIN) PO SCH (09:00)
[2016-08-10] MEDS: ENOXAPARIN SODIUM 30 MG/0.3 ML SYRINGE SUBCUT SCH (09:00)
[2016-08-10] MEDS: LIDOCAINE PATCH 5% 1 EA TP SCH ×2 (09:00→13:29)
[2016-08-10] MEDS: BALSAM PERU/CASTOR OIL 60 GM OINT...G. TP SCH (09:00)
[2016-08-10 09:51] LABS: NEUTROPHILS % (AUTO) 95.5 % (40.0-70.0)
[2016-08-10] MEDS: DOCUSATE SODIUM 250 MG CAPSULE PO SCH ×2 (11:02→20:32)
[2016-08-10] MEDS: FAMOTIDINE 20 MG TABLET PO SCH (11:02)
[2016-08-10] MEDS: FOLIC ACID 1 MG TABLET PO SCH (11:02)
[2016-08-10] MEDS: guaiFENesin ER 600 MG TAB PO SCH ×2 (11:03→20:32)
[2016-08-10] MEDS: MORPHINE 2 MG/ML INJ. SYRINGE IVP PRN (15:24)
[2016-08-10] MEDS: PREGABALIN 25 MG CAPSULE (LYRICA) PO SCH (20:32)
[2016-08-10] MEDS ORDERED: PIPERACILLIN/TAZOBACTAM 4.5 GM/VIAL (ZOSYN) IV ONE (21:35)
[2016-08-10] MEDS: PIPERACILLIN/TAZO 4.5GM/DEX-IS 100 ML IV SCH (21:46)
[2016-08-11 01:13] VITALS: BP_SYST 120
[2016-08-11] MEDS: ALBUTEROL SULFATE 0.083% 2.5 MG/3 ML VIAL.NEB INH SCH ×6 (02:37→23:46)
[2016-08-11] MEDS: IPRATROPIUM BROM 0.5 MG/2.5 ML VIAL.NEB (ATROVENT) INH SCH ×6 (02:37→23:46)
[2016-08-11 04:20] VITALS: BP_SYST 139
[2016-08-11] MEDS: NORMAL SALINE 5 ML DISP.SYRIN IVF SCH ×3 (05:19→21:14)
[2016-08-11] MEDS: methylPREDNISolone SOD SUCC 40 MG/ML VIAL IVP SCH ×3 (05:19→22:31)
[2016-08-11] MEDS: PIPERACILLIN/TAZO 4.5GM/DEX-IS 100 ML IV SCH ×3 (05:19→22:31)
[2016-08-11] MEDS: NACL 0.9% 1,000 ML IV SCH ×3 (05:20→14:03)
[2016-08-11 06:20] LABS: ALANINE AMINOTRANSFERASE 44 U/L (12-78); ALBUMIN 1.9 g/dL (3.4-4.8); ASPARTATE AMINOTRANSFERASE 21 U/L (10-37); CALCIUM 8.4 mg/dL (8.4-11.0); CHLORIDE 103 mmol/L (98-107); CREATININE 0.69 mg/dL (0.55-1.30); GLUCOSE 155 mg/dL (70-99); POTASSIUM 3.7 mmol/L (3.5-5.1); SODIUM SERUM 137 mmol/L (136-145); TOTAL BILIRUBIN 1.5 mg/dL (0.0-1.0); TOTAL PROTEIN, SERUM 5.2 g/dL (6.4-8.3); UREA NITROGEN, BLOOD 19 mg/dL (8-21)
[2016-08-11 06:27] LABS: BASOPHILS % (AUTO) 0.2 % (0.0-2.0); HEMATOCRIT 33.2 % (36-54); LYMPHOCYTES # (AUTO) 0.3 K/uL (1.0-5.5); LYMPHOCYTES % (AUTO) 2.3 % (20.5-51.5); MEAN CORPUSCULAR HEMOGLOBIN 30 pg (27-31); MEAN CORPUSCULAR HGB CONC 33 % (32-36); MEAN CORPUSCULAR VOLUME 91 fL (79.0-98.0); MONOCYTES # (AUTO) 0.7 K/uL (0.0-1.0); NEUTROPHILS % (AUTO) 92.5 % (40.0-70.0); PLATELET COUNT (AUTO) 176 K/uL (130-430); RED BLOOD CELL COUNT(AUTO) 3.66 MIL/uL (4.2-6.2); RED CELL DISTRIBUTION WIDTH 15.3 % (9.0-15.0)
[2016-08-11 06:30] LABS: ANION GAP < 3 (5-15)
[2016-08-11 08:00] VITALS: BP_SYST 126
[2016-08-11] MEDS: FAMOTIDINE 20 MG TABLET PO SCH (08:38)
[2016-08-11] MEDS: FOLIC ACID 1 MG TABLET PO SCH (08:38)
[2016-08-11] MEDS: ENOXAPARIN SODIUM 30 MG/0.3 ML SYRINGE SUBCUT SCH (08:39)
[2016-08-11] MEDS: ASPIRIN 81 MG TABLET(ECOTRIN) PO SCH (08:39)
[2016-08-11] MEDS: DOCUSATE SODIUM 250 MG CAPSULE PO SCH ×2 (08:39→21:03)
[2016-08-11] MEDS: guaiFENesin ER 600 MG TAB PO SCH ×2 (08:39→21:03)
[2016-08-11] MEDS: LIDOCAINE PATCH 5% 1 EA TP SCH (08:40)
[2016-08-11] MEDS: BALSAM PERU/CASTOR OIL 60 GM OINT...G. TP SCH (08:53)
[2016-08-11] MEDS ORDERED: FUROSEMIDE 20 MG/2 ML VIAL IVP ONE (10:00)
[2016-08-11] MEDS ORDERED: METOPROLOL SUCCINATE 25 MG TAB.SR.24H (TOPROL XL) PO ONE (10:15)
[2016-08-11] MEDS: MORPHINE 2 MG/ML INJ. SYRINGE IVP PRN (12:00)
[2016-08-11 13:01] VITALS: BP_SYST 130
[2016-08-11 16:59] VITALS: BP_SYST 139
[2016-08-11 19:50] VITALS: BP_SYST 124
[2016-08-11] MEDS: PREGABALIN 25 MG CAPSULE (LYRICA) PO SCH (21:02)
[2016-08-11] MEDS ORDERED: BIMA2.5D5 OP (21:22)
[2016-08-12 00:28] VITALS: BP_SYST 107
[2016-08-12] MEDS: ALBUTEROL SULFATE 0.083% 2.5 MG/3 ML VIAL.NEB INH SCH ×6 (03:00→23:00)
[2016-08-12] MEDS: IPRATROPIUM BROM 0.5 MG/2.5 ML VIAL.NEB (ATROVENT) INH SCH ×6 (03:00→23:00)
[2016-08-12] MEDS: NACL 0.9% 1,000 ML IV SCH ×2 (04:15→16:59)
[2016-08-12 04:33] VITALS: BP_SYST 123
[2016-08-12] MEDS: methylPREDNISolone SOD SUCC 40 MG/ML VIAL IVP SCH ×3 (05:17→21:51)
[2016-08-12] MEDS: PIPERACILLIN/TAZO 4.5GM/DEX-IS 100 ML IV SCH ×3 (05:17→21:51)
[2016-08-12] MEDS: NORMAL SALINE 5 ML DISP.SYRIN IVF SCH ×3 (06:09→21:52)
[2016-08-12 06:20] LABS: BASOPHILS % (AUTO) 0.2 % (0.0-2.0); EOSINOPHILS % (AUTO) 0.1 % (0.0-4.0); HEMATOCRIT 33.2 % (36-54); HEMOGLOBIN 10.9 g/dL (14.0-18.0); LYMPHOCYTES # (AUTO) 0.3 K/uL (1.0-5.5); LYMPHOCYTES % (AUTO) 2.6 % (20.5-51.5); MEAN CORPUSCULAR HEMOGLOBIN 30 pg (27-31); MEAN CORPUSCULAR HGB CONC 33 % (32-36); MEAN CORPUSCULAR VOLUME 91 fL (79.0-98.0); MONOCYTES # (AUTO) 0.6 K/uL (0.0-1.0); NEUTROPHILS # (AUTO) 11.8 K/uL (1.8-7.7); NEUTROPHILS % (AUTO) 92.1 % (40.0-70.0); PLATELET COUNT (AUTO) 188 K/uL (130-430); RED BLOOD CELL COUNT(AUTO) 3.66 MIL/uL (4.2-6.2); RED CELL DISTRIBUTION WIDTH 15.6 % (9.0-15.0); WHITE BLOOD COUNT (AUTO) 12.7 K/uL (4.8-10.8)
[2016-08-12 06:42] LABS: ALANINE AMINOTRANSFERASE 53 U/L (12-78); ALBUMIN 1.9 g/dL (3.4-4.8); ANION GAP 4 (5-15); ASPARTATE AMINOTRANSFERASE 25 U/L (10-37); CALCIUM 8.3 mg/dL (8.4-11.0); CHLORIDE 100 mmol/L (98-107); CREATININE 0.68 mg/dL (0.55-1.30); GLUCOSE 173 mg/dL (70-99); POTASSIUM 3.7 mmol/L (3.5-5.1); SODIUM SERUM 136 mmol/L (136-145); TOTAL BILIRUBIN 1.1 mg/dL (0.0-1.0); TOTAL PROTEIN, SERUM 5.2 g/dL (6.4-8.3); UREA NITROGEN, BLOOD 16 mg/dL (8-21)
[2016-08-12 08:30] VITALS: BP_SYST 153
[2016-08-12] MEDS: BALSAM PERU/CASTOR OIL 60 GM OINT...G. TP SCH (09:00)
[2016-08-12] MEDS: ENOXAPARIN SODIUM 30 MG/0.3 ML SYRINGE SUBCUT SCH (09:54)
[2016-08-12] MEDS: DOCUSATE SODIUM 250 MG CAPSULE PO SCH ×2 (09:55→21:51)
[2016-08-12] MEDS: guaiFENesin ER 600 MG TAB PO SCH ×2 (09:55→21:51)
[2016-08-12] MEDS: FAMOTIDINE 20 MG TABLET PO SCH (09:55)
[2016-08-12] MEDS: FOLIC ACID 1 MG TABLET PO SCH (09:55)
[2016-08-12] MEDS: METOPROLOL SUCCINATE 25 MG TAB.SR.24H (TOPROL XL) PO SCH (09:55)
[2016-08-12] MEDS: ASPIRIN 81 MG TABLET(ECOTRIN) PO SCH (09:55)
[2016-08-12] MEDS: LIDOCAINE PATCH 5% 1 EA TP SCH (09:56)
[2016-08-12 17:04] VITALS: BP_SYST 130
[2016-08-12 20:47] VITALS: BP_SYST 135
[2016-08-12] MEDS ORDERED: BIMATOPROST 0.01%, 2.5 ML EYE DROPS OP SCH (21:00)
[2016-08-12] MEDS: PREGABALIN 25 MG CAPSULE (LYRICA) PO SCH (21:51)
[2016-08-12] MEDS: ONDANSETRON HCL 4 MG/2 ML VIAL IVP PRN (22:37)
[2016-08-12] MEDS: MORPHINE 2 MG/ML INJ. SYRINGE IVP PRN (22:38)
[2016-08-13 00:22] VITALS: BP_SYST 136
[2016-08-13] MEDS: IPRATROPIUM BROM 0.5 MG/2.5 ML VIAL.NEB (ATROVENT) INH SCH ×6 (03:00→23:11)
[2016-08-13] MEDS: ALBUTEROL SULFATE 0.083% 2.5 MG/3 ML VIAL.NEB INH SCH ×6 (03:00→23:11)
[2016-08-13 04:13] VITALS: BP_SYST 138
[2016-08-13] MEDS: methylPREDNISolone SOD SUCC 40 MG/ML VIAL IVP SCH ×3 (06:20→21:20)
[2016-08-13] MEDS: PIPERACILLIN/TAZO 4.5GM/DEX-IS 100 ML IV SCH ×3 (06:22→21:21)
[2016-08-13] MEDS: NORMAL SALINE 5 ML DISP.SYRIN IVF SCH ×3 (06:22→21:24)
[2016-08-13] MEDS: ONDANSETRON HCL 4 MG/2 ML VIAL IVP PRN (06:52)
[2016-08-13 08:00] VITALS: BP_SYST 127
[2016-08-13] MEDS: NACL 0.9% 1,000 ML IV SCH ×2 (08:54→19:39)
[2016-08-13] MEDS: ENOXAPARIN SODIUM 30 MG/0.3 ML SYRINGE SUBCUT SCH (09:01)
[2016-08-13] MEDS: LIDOCAINE PATCH 5% 1 EA TP SCH (09:02)
[2016-08-13] MEDS: FAMOTIDINE 20 MG TABLET PO SCH (09:02)
[2016-08-13] MEDS: guaiFENesin ER 600 MG TAB PO SCH ×2 (09:02→21:05)
[2016-08-13] MEDS: FOLIC ACID 1 MG TABLET PO SCH (09:02)
[2016-08-13] MEDS: METOPROLOL SUCCINATE 25 MG TAB.SR.24H (TOPROL XL) PO SCH (09:02)
[2016-08-13] MEDS: ASPIRIN 81 MG TABLET(ECOTRIN) PO SCH (09:02)
[2016-08-13] MEDS: BALSAM PERU/CASTOR OIL 60 GM OINT...G. TP SCH (09:03)
[2016-08-13] MEDS: DOCUSATE SODIUM 250 MG CAPSULE PO SCH ×2 (09:03→21:05)
[2016-08-13 12:00] VITALS: BP_SYST 141
[2016-08-13 16:00] VITALS: BP_SYST 103
[2016-08-13 20:05] VITALS: BP_SYST 127
[2016-08-13] MEDS: PREGABALIN 25 MG CAPSULE (LYRICA) PO SCH (21:05)
[2016-08-14] VITALS (7 sets, daily range): BP systolic 109–130
[2016-08-14] MEDS: IPRATROPIUM BROM 0.5 MG/2.5 ML VIAL.NEB (ATROVENT) INH SCH ×6 (03:00→23:08)
[2016-08-14] MEDS: ALBUTEROL SULFATE 0.083% 2.5 MG/3 ML VIAL.NEB INH SCH ×6 (03:00→23:09)
[2016-08-14] MEDS: PIPERACILLIN/TAZO 4.5GM/DEX-IS 100 ML IV SCH ×3 (06:09→21:38)
[2016-08-14] MEDS: NORMAL SALINE 5 ML DISP.SYRIN IVF SCH ×3 (06:11→21:40)
[2016-08-14] MEDS: methylPREDNISolone SOD SUCC 40 MG/ML VIAL IVP SCH ×3 (06:11→21:39)
[2016-08-14 07:00] LABS: ANION GAP 2 (5-15); CHLORIDE 99 mmol/L (98-107); CREATININE 0.59 mg/dL (0.55-1.30); GLUCOSE 142 mg/dL (70-99); POTASSIUM 4.2 mmol/L (3.5-5.1); SODIUM SERUM 134 mmol/L (136-145); UREA NITROGEN, BLOOD 13 mg/dL (8-21)
[2016-08-14 07:04] LABS: BASOPHILS # (AUTO) 0.1 K/uL (0.0-0.2); BASOPHILS % (AUTO) 1.3 % (0.0-2.0); HEMOGLOBIN 10.7 g/dL (14.0-18.0); LYMPHOCYTES # (AUTO) 0.6 K/uL (1.0-5.5); LYMPHOCYTES % (AUTO) 6.6 % (20.5-51.5); MEAN CORPUSCULAR HEMOGLOBIN 29 pg (27-31); MEAN CORPUSCULAR HGB CONC 33 % (32-36); MEAN CORPUSCULAR VOLUME 90 fL (79.0-98.0); MONOCYTES # (AUTO) 0.7 K/uL (0.0-1.0); MONOCYTES % (AUTO) 7.8 % (1.7-9.3); NEUTROPHILS # (AUTO) 7.1 K/uL (1.8-7.7); NEUTROPHILS % (AUTO) 84.3 % (40.0-70.0); PLATELET COUNT (AUTO) 166 K/uL (130-430); RED BLOOD CELL COUNT(AUTO) 3.66 MIL/uL (4.2-6.2); RED CELL DISTRIBUTION WIDTH 15.2 % (9.0-15.0); WHITE BLOOD COUNT (AUTO) 8.5 K/uL (4.8-10.8)
[2016-08-14] MEDS: ASPIRIN 81 MG TABLET(ECOTRIN) PO SCH (08:40)
[2016-08-14] MEDS: FAMOTIDINE 20 MG TABLET PO SCH (08:40)
[2016-08-14] MEDS: FOLIC ACID 1 MG TABLET PO SCH (08:40)
[2016-08-14] MEDS: DOCUSATE SODIUM 250 MG CAPSULE PO SCH ×2 (08:41→21:39)
[2016-08-14] MEDS: METOPROLOL SUCCINATE 25 MG TAB.SR.24H (TOPROL XL) PO SCH (08:42)
[2016-08-14] MEDS: guaiFENesin ER 600 MG TAB PO SCH ×2 (08:42→21:39)
[2016-08-14] MEDS: LIDOCAINE PATCH 5% 1 EA TP SCH (08:46)
[2016-08-14] MEDS: ENOXAPARIN SODIUM 30 MG/0.3 ML SYRINGE SUBCUT SCH (08:55)
[2016-08-14] MEDS: BALSAM PERU/CASTOR OIL 60 GM OINT...G. TP SCH (08:57)
[2016-08-14] MEDS: MORPHINE 2 MG/ML INJ. SYRINGE IVP PRN (10:15)
[2016-08-14] MEDS ORDERED: MORPHINE 2 MG/ML INJ. SYRINGE ONE (10:16)
[2016-08-14] MEDS ORDERED: FUROSEMIDE 20 MG/2 ML VIAL IVP ONE (11:00)
[2016-08-14] MEDS ORDERED: METOLAZONE 5 MG TABLET PO ONE (11:45)
[2016-08-14] MEDS: PREGABALIN 25 MG CAPSULE (LYRICA) PO SCH (21:39)
[2016-08-15] VITALS (11 sets, daily range): BP systolic 95–127
[2016-08-15] MEDS: IPRATROPIUM BROM 0.5 MG/2.5 ML VIAL.NEB (ATROVENT) INH SCH ×6 (03:00→23:41)
[2016-08-15] MEDS: ALBUTEROL SULFATE 0.083% 2.5 MG/3 ML VIAL.NEB INH SCH ×6 (03:00→23:36)
[2016-08-15] MEDS: PIPERACILLIN/TAZO 4.5GM/DEX-IS 100 ML IV SCH ×2 (05:11→22:00)
[2016-08-15] MEDS: NORMAL SALINE 5 ML DISP.SYRIN IVF SCH ×3 (05:11→21:07)
[2016-08-15] MEDS: methylPREDNISolone SOD SUCC 40 MG/ML VIAL IVP SCH ×3 (05:11→21:27)
[2016-08-15 06:25] LABS: BASOPHILS % (AUTO) 0.4 % (0.0-2.0); EOSINOPHILS % (AUTO) 0.1 % (0.0-4.0); HEMOGLOBIN 11.5 g/dL (14.0-18.0); LYMPHOCYTES # (AUTO) 0.5 K/uL (1.0-5.5); LYMPHOCYTES % (AUTO) 5.6 % (20.5-51.5); MEAN CORPUSCULAR HEMOGLOBIN 29 pg (27-31); MEAN CORPUSCULAR HGB CONC 32 % (32-36); MEAN CORPUSCULAR VOLUME 91 fL (79.0-98.0); MONOCYTES # (AUTO) 0.5 K/uL (0.0-1.0); MONOCYTES % (AUTO) 6.1 % (1.7-9.3); NEUTROPHILS % (AUTO) 87.8 % (40.0-70.0); PLATELET COUNT (AUTO) 180 K/uL (130-430); RED BLOOD CELL COUNT(AUTO) 3.95 MIL/uL (4.2-6.2); RED CELL DISTRIBUTION WIDTH 15.1 % (9.0-15.0)
[2016-08-15 06:47] LABS: ANION GAP 3 (5-15); CALCIUM 8.3 mg/dL (8.4-11.0); CHLORIDE 93 mmol/L (98-107); CREATININE 0.66 mg/dL (0.55-1.30); GLUCOSE 168 mg/dL (70-99); POTASSIUM 3.3 mmol/L (3.5-5.1); SODIUM SERUM 131 mmol/L (136-145); UREA NITROGEN, BLOOD 12 mg/dL (8-21)
[2016-08-15] MEDS: LIDOCAINE PATCH 5% 1 EA TP SCH (09:00)
[2016-08-15] MEDS: ENOXAPARIN SODIUM 30 MG/0.3 ML SYRINGE SUBCUT SCH (09:00)
[2016-08-15] MEDS: BALSAM PERU/CASTOR OIL 60 GM OINT...G. TP SCH (09:00)
[2016-08-15] MEDS: FAMOTIDINE 20 MG TABLET PO SCH (09:00)
[2016-08-15] MEDS: FOLIC ACID 1 MG TABLET PO SCH (09:00)
[2016-08-15] MEDS: guaiFENesin ER 600 MG TAB PO SCH ×2 (09:00→21:04)
[2016-08-15] MEDS: DOCUSATE SODIUM 250 MG CAPSULE PO SCH ×2 (09:00→21:04)
[2016-08-15] MEDS: ASPIRIN 81 MG TABLET(ECOTRIN) PO SCH (09:00)
[2016-08-15] MEDS ORDERED: POTASSIUM CHLORIDE 40 MEQ in NS 250 ML IV ONE (10:30)
[2016-08-15] MEDS: METOPROLOL SUCCINATE 25 MG TAB.SR.24H (TOPROL XL) PO SCH (12:10)
[2016-08-15] MEDS: MORPHINE 2 MG/ML INJ. SYRINGE IVP PRN ×2 (15:04→21:05)
[2016-08-15] MEDS ORDERED: POTASSIUM CHLORIDE 20 MEQ/PKT PACKET PO ONE (16:00)
[2016-08-15 16:17] LABS: BASOPHILS # (AUTO) 0.3 K/uL (0.0-0.2); BASOPHILS % (AUTO) 2.2 % (0.0-2.0); EOSINOPHILS % (AUTO) 0.1 % (0.0-4.0); HEMATOCRIT 38.1 % (36-54); HEMOGLOBIN 12.4 g/dL (14.0-18.0); LYMPHOCYTES % (AUTO) 8.6 % (20.5-51.5); MEAN CORPUSCULAR HEMOGLOBIN 29 pg (27-31); MEAN CORPUSCULAR HGB CONC 33 % (32-36); MEAN CORPUSCULAR VOLUME 90 fL (79.0-98.0); MONOCYTES # (AUTO) 0.6 K/uL (0.0-1.0); MONOCYTES % (AUTO) 5.3 % (1.7-9.3); NEUTROPHILS # (AUTO) 9.9 K/uL (1.8-7.7); NEUTROPHILS % (AUTO) 83.8 % (40.0-70.0); RED BLOOD CELL COUNT(AUTO) 4.24 MIL/uL (4.2-6.2); RED CELL DISTRIBUTION WIDTH 15.4 % (9.0-15.0); WHITE BLOOD COUNT (AUTO) 11.8 K/uL (4.8-10.8)
[2016-08-15 16:36] LABS: ALANINE AMINOTRANSFERASE 79 U/L (12-78); ALBUMIN 2.3 g/dL (3.4-4.8); ANION GAP 4 (5-15); ASPARTATE AMINOTRANSFERASE 31 U/L (10-37); CALCIUM 8.7 mg/dL (8.4-11.0); CHLORIDE 94 mmol/L (98-107); CREATININE 0.62 mg/dL (0.55-1.30); GLUCOSE 126 mg/dL (70-99); SODIUM SERUM 133 mmol/L (136-145); TOTAL BILIRUBIN 1.5 mg/dL (0.0-1.0); TOTAL PROTEIN, SERUM 5.7 g/dL (6.4-8.3); UREA NITROGEN, BLOOD 12 mg/dL (8-21)
[2016-08-15 16:48] LABS: PLATELET COUNT (AUTO) 188 K/uL (130-430)
[2016-08-15] MEDS: PREGABALIN 25 MG CAPSULE (LYRICA) PO SCH (21:04)
[2016-08-15] MEDS: BIMATOPROST 0.01%, 2.5 ML EYE DROPS OP SCH (21:27)
[2016-08-16] VITALS (17 sets, daily range): BP systolic 90–139
[2016-08-16] MEDS: ALBUTEROL SULFATE 0.083% 2.5 MG/3 ML VIAL.NEB INH SCH ×6 (03:00→23:48)
[2016-08-16] MEDS: IPRATROPIUM BROM 0.5 MG/2.5 ML VIAL.NEB (ATROVENT) INH SCH ×6 (03:00→23:48)
[2016-08-16] MEDS: methylPREDNISolone SOD SUCC 40 MG/ML VIAL IVP SCH ×3 (05:39→21:41)
[2016-08-16] MEDS: NORMAL SALINE 5 ML DISP.SYRIN IVF SCH ×3 (05:40→21:44)
[2016-08-16] MEDS: MORPHINE 2 MG/ML INJ. SYRINGE IVP PRN ×2 (06:03→21:41)
[2016-08-16 06:19] LABS: BASOPHILS % (AUTO) 0.2 % (0.0-2.0); HEMATOCRIT 35.2 % (36-54); HEMOGLOBIN 11.6 g/dL (14.0-18.0); LYMPHOCYTES # (AUTO) 0.4 K/uL (1.0-5.5); LYMPHOCYTES % (AUTO) 3.7 % (20.5-51.5); MEAN CORPUSCULAR HEMOGLOBIN 30 pg (27-31); MEAN CORPUSCULAR HGB CONC 33 % (32-36); MEAN CORPUSCULAR VOLUME 90 fL (79.0-98.0); MONOCYTES # (AUTO) 0.4 K/uL (0.0-1.0); MONOCYTES % (AUTO) 3.6 % (1.7-9.3); NEUTROPHILS # (AUTO) 10.9 K/uL (1.8-7.7); NEUTROPHILS % (AUTO) 92.5 % (40.0-70.0); PLATELET COUNT (AUTO) 175 K/uL (130-430); RED BLOOD CELL COUNT(AUTO) 3.89 MIL/uL (4.2-6.2); RED CELL DISTRIBUTION WIDTH 15.1 % (9.0-15.0); WHITE BLOOD COUNT (AUTO) 11.7 K/uL (4.8-10.8)
[2016-08-16 06:34] LABS: ANION GAP 4 (5-15); CALCIUM 8.4 mg/dL (8.4-11.0); CHLORIDE 92 mmol/L (98-107); CREATININE 0.63 mg/dL (0.55-1.30); GLUCOSE 168 mg/dL (70-99); POTASSIUM 3.8 mmol/L (3.5-5.1); SODIUM SERUM 128 mmol/L (136-145); UREA NITROGEN, BLOOD 13 mg/dL (8-21)
[2016-08-16] MEDS: PIPERACILLIN/TAZO 4.5GM/DEX-IS 100 ML IV SCH ×3 (07:37→21:42)
[2016-08-16] MEDS: ASPIRIN 81 MG TABLET(ECOTRIN) PO SCH (09:11)
[2016-08-16] MEDS: FOLIC ACID 1 MG TABLET PO SCH (09:11)
[2016-08-16] MEDS: DOCUSATE SODIUM 250 MG CAPSULE PO SCH ×2 (09:11→21:42)
[2016-08-16] MEDS: FAMOTIDINE 20 MG TABLET PO SCH (09:11)
[2016-08-16] MEDS: ENOXAPARIN SODIUM 30 MG/0.3 ML SYRINGE SUBCUT SCH (09:12)
[2016-08-16] MEDS: BALSAM PERU/CASTOR OIL 60 GM OINT...G. TP SCH (09:13)
[2016-08-16] MEDS: FUROSEMIDE 40 MG TABLET PO SCH (09:20)
[2016-08-16] MEDS: guaiFENesin ER 600 MG TAB PO SCH ×2 (09:21→21:42)
[2016-08-16] MEDS: METOPROLOL SUCCINATE 25 MG TAB.SR.24H (TOPROL XL) PO SCH (09:23)
[2016-08-16] MEDS: LIDOCAINE PATCH 5% 1 EA TP SCH (11:23)
[2016-08-16] MEDS: PREGABALIN 25 MG CAPSULE (LYRICA) PO SCH (21:42)
[2016-08-16] MEDS: BIMATOPROST 0.01%, 2.5 ML EYE DROPS OP SCH (21:43)
[2016-08-17] VITALS (10 sets, daily range): BP systolic 98–134
[2016-08-17] MEDS: IPRATROPIUM BROM 0.5 MG/2.5 ML VIAL.NEB (ATROVENT) INH SCH ×5 (03:00→19:48)
[2016-08-17] MEDS: ALBUTEROL SULFATE 0.083% 2.5 MG/3 ML VIAL.NEB INH SCH ×5 (03:00→19:48)
[2016-08-17] MEDS: methylPREDNISolone SOD SUCC 40 MG/ML VIAL IVP SCH ×2 (05:59→14:57)
[2016-08-17] MEDS: PIPERACILLIN/TAZO 4.5GM/DEX-IS 100 ML IV SCH (05:59)
[2016-08-17] MEDS: NORMAL SALINE 5 ML DISP.SYRIN IVF SCH ×2 (06:00→14:58)
[2016-08-17] MEDS: guaiFENesin ER 600 MG TAB PO SCH ×2 (08:32→21:19)
[2016-08-17] MEDS: FAMOTIDINE 20 MG TABLET PO SCH (08:32)
[2016-08-17] MEDS: DOCUSATE SODIUM 250 MG CAPSULE PO SCH ×2 (08:32→21:19)
[2016-08-17] MEDS: ASPIRIN 81 MG TABLET(ECOTRIN) PO SCH (08:32)
[2016-08-17] MEDS: FOLIC ACID 1 MG TABLET PO SCH (08:32)
[2016-08-17] MEDS: ENOXAPARIN SODIUM 30 MG/0.3 ML SYRINGE SUBCUT SCH (08:33)
[2016-08-17] MEDS: FUROSEMIDE 40 MG TABLET PO SCH (08:33)
[2016-08-17] MEDS: METOPROLOL SUCCINATE 25 MG TAB.SR.24H (TOPROL XL) PO SCH (09:00)
[2016-08-17] MEDS: BALSAM PERU/CASTOR OIL 60 GM OINT...G. TP SCH (09:44)
[2016-08-17] MEDS: LIDOCAINE PATCH 5% 1 EA TP SCH (09:44)
[2016-08-17] MEDS: MORPHINE 2 MG/ML INJ. SYRINGE IVP PRN ×2 (09:51→17:22)
[2016-08-17] MEDS ORDERED: HYDROcodone/ACETAMIN 10-325 MG TAB PO PRN (18:15)
[2016-08-17] MEDS ORDERED: LOVI30 SUBCUT (18:30)
[2016-08-17] MEDS ORDERED: LOVI30 SQ (18:30)
[2016-08-17] MEDS ORDERED: MORP15TA60 PO (18:31)
[2016-08-17] MEDS ORDERED: HYDR-4100 PO (18:32)
[2016-08-17] MEDS ORDERED: MORPHINE SULFATE 15 MG TABLET.SA PO SCH (21:00)
[2016-08-17] MEDS: PREGABALIN 25 MG CAPSULE (LYRICA) PO SCH (21:19)
[2016-08-17] MEDS: BIMATOPROST 0.01%, 2.5 ML EYE DROPS OP SCH (21:20)
== END 2016-08-17 23:22 | DRG 166 ==
LOC: SED 10:47 → SIC 12:19 → STU 13:08 → SIC 08-09 18:30 → STU 08-10 15:04 → SIC 08-15 15:31 → STU 08-16 14:41
PROVIDERS: ADMIT Internal Medicine; ATTEND Family Medicine Geriatric Medicine
PROC: 0W993ZZ Drainage of Right Pleural Cavity, Percutaneous Approach (ICD-10-PCS; 2016-08-01)
PROC: 5A09357 Assistance with Respiratory Ventilation, Less than 24 Consecutive Hours, Continuous Positive Airway Pressure (ICD-10-PCS; 2016-08-04)
PROC: 0JB70ZZ Excision of Back Subcutaneous Tissue and Fascia, Open Approach (ICD-10-PCS; principal; 2016-08-06 16:45)
PROC: 0D1L4Z4 Bypass Transverse Colon to Cutaneous, Percutaneous Endoscopic Approach (ICD-10-PCS; 2016-08-09)
PROC: 0W993ZZ Drainage of Right Pleural Cavity, Percutaneous Approach (ICD-10-PCS; 2016-08-09)
PROC: 0W9930Z Drainage of Right Pleural Cavity with Drainage Device, Percutaneous Approach (ICD-10-PCS; 2016-08-15)
DX: J18.9 Pneumonia, unspecified organism (principal); L89.153 Pressure ulcer of sacral region, stage 3; M72.6 Necrotizing fasciitis; J96.01 Acute respiratory failure with hypoxia; J90 Pleural effusion, not elsewhere classified; C79.51 Secondary malignant neoplasm of bone; C85.90 Non-Hodgkin lymphoma, unspecified, unspecified site; G82.20 Paraplegia, unspecified; E11.52 Type 2 diabetes mellitus with diabetic peripheral angiopathy with gangrene; I50.30 Unspecified diastolic (congestive) heart failure; I48.2 Chronic atrial fibrillation; E78.5 Hyperlipidemia, unspecified; G89.4 Chronic pain syndrome; I11.0 Hypertensive heart disease with heart failure; N40.0 Benign prostatic hyperplasia without lower urinary tract symptoms; M54.9 Dorsalgia, unspecified; E87.6 Hypokalemia; Z66 Do not resuscitate; W06.XXXA Fall from bed, initial encounter; Y93.89 Activity, other specified; Y92.89 Other specified places as the place of occurrence of the external cause; Y99.8 Other external cause status; Z92.21 Personal history of antineoplastic chemotherapy; Z79.82 Long term (current) use of aspirin; Z79.899 Other long term (current) drug therapy; Z87.891 Personal history of nicotine dependence; Z90.49 Acquired absence of other specified parts of digestive tract; Z74.01 Bed confinement status; Z79.01 Long term (current) use of anticoagulants; Z85.820 Personal history of malignant melanoma of skin; Z85.46 Personal history of malignant neoplasm of prostate; Z93.3 Colostomy status
CPT/HCPCS: 32555; 36415; 36600; 70450-TC; 71010; 71260-TC; 80048; 80053; 80202-TC; 81000-TC; 82803-TC; 82947-TC; 83605; 83735-TC; 83880; 84157-TC; 84484; 85025; 85610-TC; 87040-TC; 87070-TC; 87081; 87086; 87116; 88108; 88304; 88305; 88313; 89051-TC; 89060-TC; 93005; 94640; 94660; 94760; 96365; 96375; 99285; A4421; A6209; C1729; J0690; J1030; J1644; J1650; J1940; J1956; J2001; J2250; J2270; J2405; J2543; J2765; J2930; J3010; J3370; J3465; J3475; J3480; J3490; J7030; J7050; J7120; Q9967